=== PATIENT | male | born 1935 | race Caucasian/White ===

== ENCOUNTER 2018-07-17 05:03 | Inpatient (IN) | payer MEDICAID ==
[2018-07-17] MEDS ORDERED: Nitroglycerin 50mg in D5W 50 MG/250 ML BOTTLE IV ONE (05:11)
[2018-07-17] MEDS ORDERED: Albuterol 0.083% Inhal Sol (2.5 mg/3 mL) UD IH STA (05:14)
[2018-07-17] MEDS ORDERED: Albuterol-Ipratrop 3 mg / 0.5 (3 ml) UD INH STA (05:15)
[2018-07-17 05:16] VITALS: BMI 23.5
--- NOTE | 2018-07-17 05:19 | C.PDOC ---
History Of Present Illness Patient ANAT from home for evaluation of SOB since waking up. Grandson states he has chronic SOB, most often at night. Tonight he woke up around midnight with SOB, sat in chair for a few hours but then around 3am he tried to go back to bed and became more SOB again. Patient was placed on CPAP and given IV Lasix 40mg in the field by EMS. Patient has PMHx of CHF and "valve problem". History is limited due to clinical condition. Time Seen by Provider: 07/17/18 05:09 Chief Complaint (Nursing): Shortness Of Breath History Per: Patient History/Exam Limitations: clinical condition Current Respiratory Medications: See Home Med List Past Medical History Reviewed: Historical Data, Nursing Documentation, Vital Signs - Medical History PMH: CHF Family History: States: No Known Family Hx Review Of Systems Review Of Systems: ROS cannot be obtained secondary to pt's inabilty to answer questions. Physical Exam - Physical Exam Appears: In Acute Distress (in moderate respiratory distress) Skin: Normal Color, Warm, Dry Head: Normacephalic Oral Mucosa: Moist Cardiovascular: Rhythm Regular Respiratory: Accessory Muscle Use (moderate), Rales (B/L bases), No Rhonchi, Wheezing (mild expiratory wheezing ) Gastrointestinal/Abdominal: Normal Exam, Bowel Sounds, Soft, No Tenderness Extremity: Normal ROM, Pedal Edema (+1 pitting edema B/L LEs) Pulses: Left Dorsalis Pedis: Normal, Right Dorsalis Pedis: Normal Neurological/Psych: Oriented x3 ED Course And Treatment - Laboratory Results Result Diagrams: 07/21/18 07:58 07/21/18 07:58 ECG: Interpreted By Me, Viewed By Me (sinus rhythm 80 bpm, PACSs, left axis deviation, LBBB, T wave inversions I, aVL, V5-V6, no acute ST changes) ECG Interpretation: Abnormal O2 Sat by Pulse Oximetry: 94 (RA) Pulse Ox Interpretation: Normal - Radiology CXR: Interpreted by Me, Viewed By Me (pulmonary vascular congestion, no infilt rates, (+) pleural effusions) Progress Note: Patient placed on Bipap emergently. Blood work, EKG, CXR ordered and reviewed. Tridil drip started. 6:05am- Spoke with larriman helper Dr. Bourgeois, she will come eval patient for possible ICU admission. 6:32am- Oil Treater recommends telemetry admission. Reevaluation Time: 06:15 Reassessment Condition: Improved (Patient improved, sleeping but easily arousable and with less accessory muscle use. BP 90/40- Tridil drip stopped.) - Physician Consult Information Physician Contacted: Nemesio Cardona Outcome Of Conversation: Discussed patient with hospitalist (covers for Dr. Radha Duran + patient is self pay), he agrees with admission for dyspnea, chf exacerbation/fluid overload. Critical Care Time - Critical Care Note Total Time (in mins): 40 Documented critical care: time excludes all time spent performing seperately billable procedures. Disposition - Disposition Disposition: HOSPITALIZED Disposition Time: 06:27 Condition: FAIR - Clinical Impression Clinical Impression: Acute exacerbation of CHF (congestive heart failure), Dyspnea Decision To Admit - Pt Status Changed To: Hospital Disposition Of: Inpatient - Admit Certification Admit to Inpatient:: After my assessment, the patient will require hospitalization for at least two midnights. This is because of the severity of symptoms shown, intensity of services needed, and/or the medical risk in this pa tient being treated as an outpatient. - InPatient: Physician Admission Certification: I certify that this patient requires 2 or more midnights of care for the following reason:: see notes - . Bed Request Type: Telemetry Admitting Physician: Nemesio Cardona Patient Diagnosis: Acute exacerbation of CHF (congestive heart failure), Dyspnea
[2018-07-17 05:26] LABS: BASO % 0.5 % (0.0-2.0); EOS # 0.1 K/uL (0.0-0.7); EOS % 1.1 % (0.0-4.0); HEMOGLOBIN 11.4 g/dL (12.0-18.0); LYMPH # 1.6 K/uL (1.0-4.3); LYMPH % 17.9 % (20.0-40.0); MEAN CELL VOLUME 96.1 fL (80.0-94.0); MEAN CORPUSCULAR HGB CONC 33.2 g/dL (33.0-37.0); MEAN PLATELET VOLUME 7.4 fL (7.2-11.7); MONO # 0.6 K/uL (0.0-0.8); MONO % 6.4 % (0.0-10.0); NEUT # 6.7 K/uL (1.8-7.0); NEUT % 74.1 % (50.0-75.0); RBC 3.56 Mil/uL (4.40-5.90); RED CELL DISTRIBUTION WIDTH 15.1 % (11.5-14.5)
[2018-07-17 05:33] LABS: INR 1.2; PROTHROMBIN TIME 12.7 SECONDS (9.7-12.2)
[2018-07-17 05:37] LABS: ALB/GLOB RATIO 1.5 (1.0-2.1); ALBUMIN 4.5 g/dL (3.5-5.0); ALT/SGPT 40 U/L (21-72); AST/SGOT 74 U/L (17-59); BLOOD UREA NITROGEN 18 mg/dL (9-20); CALCIUM 9.5 mg/dl (8.6-10.4); GFR NON-AFRICAN AMERICAN > 60
[2018-07-17 05:39] LABS: ABG ALLEN TEST POS; ARTERIAL BLOOD GAS HCO3 22.4 mmol/L (21-28); ARTERIAL BLOOD GAS O2 SAT 99.7 % (95-98); ARTERIAL BLOOD GAS PCO2 36 mm/Hg (35-45); ARTERIAL BLOOD GAS PH 7.38 (7.35-7.45); ARTERIAL BLOOD GAS PO2 114 mm/Hg (80-100); ARTERIAL BLOOD GAS TCO2 22.4 mmol/L (22-28)
[2018-07-17 05:49] LABS: B-TYPE NATRIURETIC PEPTIDE 18400 pg/mL (0-900); CK-MB 3.73 ng/mL (0.0-3.38)
[2018-07-17] MEDS ORDERED: Albuterol-Ipratrop 3 mg / 0.5 (3 ml) UD ONE (06:21)
[2018-07-17] MEDS ORDERED: Albuterol 0.083% Inhal Sol (2.5 mg/3 mL) UD ONE (06:22)
--- NOTE | 2018-07-17 06:42 | CP.PCM.CON ---
History of Present Illness - History of Present Illness History of Present Illness: 82 y/o male with PMHx of CHF and "valve problem" BIBA from home for evaluation of SOB since waking up. Shane stated he has chronic SOB, most often at night. Tonight he woke up around midnight with SOB, sat in chair for a few hours but then around 3am he tried to go back to bed and became more SOB again. Patient was placed on CPAP and given IV Lasix 40mg in the field by EMS. In ER he was placed on BIPAP andstarted on IV nitrates with Clinical improvement.The nitrate drip has been discontinued.Patient denies chest pain and breathing is improved Unable to get further PMH.patient is on plavix,prednisone,singulair,Furesomi de,amlodipine and Fluticasone/Vilanterol at home Review of Systems - Review of Systems Systems not reviewed;Unavailable: Language Barrier - Constitutional Constitutional: absent: Fever - Cardiovascular Cardiovascular: absent: Chest Pain - Respiratory Respiratory: Dyspnea - Gastrointestinal Gastrointestinal: absent: Abdominal Pain Past Patient History - Past Social History Smoking Status: Unknown If Ever Smoked - CARDIAC Hx Congestive Heart Failure: Yes - PULMONARY Hx Chronic Obstructive Pulmonary Disease (COPD): Yes - NEUROLOGICAL Hx Neurological Disorder: No - HEENT Hx HEENT Problems: No - RENAL Hx Chronic Kidney Disease: No - ENDOCRINE/METABOLIC Hx Endocrine Disorders: No - HEMATOLOGICAL/ONCOLOGICAL Hx Blood Disorders: No - INTEGUMENTARY Hx Dermatological Problems: No - MUSCULOSKELETAL/RHEUMATOLOGICAL Hx Musculoskeletal Disorders: No - GASTROINTESTINAL Hx Gastrointestinal Disorders: No - GENITOURINARY/GYNECOLOGICAL Hx Genitourinary Disorders: No - PSYCHIATRIC Hx Psychophysiologic Disorder: No Hx Substance Use: No - SURGICAL HISTORY Hx Surgeries: No Meds Allergies/Adverse Reactions: Allergies Allergy/AdvReac Type Severity Reaction Status Date / Time No Known Allergies Allergy Verified 07/17/18 05:21 Physical Exam - Constitutional Appears: No Acute Distress - Head Exam Head Exam: ATRAUMATIC, NORMAL INSPECTION, NORMOCEPHALIC - Eye Exam Eye Exam: EOMI, Normal appearance, PERRL - ENT Exam ENT Exam: Mucous Membranes Moist - Neck Exam Neck exam: Positive for: Normal Inspection - Respiratory Exam Respiratory Exam: Decreased Breath Sounds Additional comments: decreased and entry and rales in bases - Cardiovascular Exam Cardiovascular Exam: REGULAR RHYTHM - GI/Abdominal Exam GI & Abdominal Exam: Normal Bowel Sounds, Soft. absent: Tenderness - Extremities Exam Extremities exam: Positive for: pedal edema, pedal pulses present. Negative for: calf tenderness - Neurological Exam Neurological exam: Alert, Oriented x3 - Skin Skin Exam: Normal Color, Warm Results - Vital Signs Recent Vital Signs: Last Vital Signs Temp Pulse 67 07/17/18 06:35 Resp 17 07/17/18 06:35 BP 100/48 L 07/17/18 06:35 Pulse Ox 98 07/17/18 06:35 - Labs Result Diagrams: 07/17/18 05:19 07/17/18 05:19 Labs: Laboratory Results - last 24 hr 07/17/18 07/17/18 07/17/18 05:19 05:19 05:19 WBC 9.0 RBC 3.56 L Hgb 11.4 L Hct 34.2 L MCV 96.1 H MCH 32.0 H MCHC 33.2 RDW 15.1 H Plt Count 226 MPV 7.4 Neut % (Auto) 74.1 Lymph % (Auto) 17.9 L Catron % (Auto) 6.4 Eos % (Auto) 1.1 Baso % (Auto) 0.5 Neut # (Auto) 6.7 Lymph # (Auto) 1.6 Catron # (Auto) 0.6 Eos # (Auto) 0.1 Baso # (Auto) 0.0 PT 12.7 H INR 1.2 APTT 29.0 Puncture Site pCO2 pO2 HCO3 ABG pH ABG Total CO2 ABG O2 Saturation ABG Base Excess Leonel Test ABG Potassium A-a O2 Difference Respiratory Index Glucose Lactate Vent Mode FiO2 Inspiratory BiPAP Expiratory BiPAP Sodium 129 L Potassium 4.9 Chloride 90 L Carbon Dioxide 23 Anion Gap 20 BUN 18 Creatinine 1.0 Est GFR ( Amer) > 60 Est GFR (Non-Af Amer) > 60 POC Glucose (mg/dL) Random Glucose 177 H Calcium 9.5 Total Bilirubin 0.9 AST 74 H ALT 40 Alkaline Phosphatase 60 Total Creatine Kinase 125 CK-MB (Mass) 3.73 H Troponin I 0.0290 NT-Pro-B Natriuret Pep 34516 H Total Protein 7.5 Albumin 4.5 Globulin 3.0 Albumin/Globulin Ratio 1.5 Arterial Blood Potassium 07/17/18 07/17/18 05:19 05:30 WBC RBC Hgb Hct MCV MCH MCHC RDW Plt Count MPV Neut % (Auto) Lymph % (Auto) Catron % (Auto) Eos % (Auto) Baso % (Auto) Neut # (Auto) Lymph # (Auto) Catron # (Auto) Eos # (Auto) Baso # (Auto) PT INR APTT Puncture Site Rr pCO2 36 pO2 114 H HCO3 22.4 ABG pH 7.38 ABG Total CO2 22.4 ABG O2 Saturation 99.7 H ABG Base Excess -3.3 L Leonel Test Pos ABG Potassium 4.2 A-a O2 Difference 269.0 Respiratory Index 2.4 Glucose 175 H Lactate 2.0 Vent Mode Bipap FiO2 60.0 Inspiratory BiPAP 14 Expiratory BiPAP 7 Sodium 125.0 L Potassium Chloride 93.0 L Carbon Dioxide Anion Gap BUN Creatinine Est GFR ( Amer) Est GFR (Non-Af Amer) POC Glucose (mg/dL) 192 H Random Glucose Calcium Total Bilirubin AST ALT Alkaline Phosphatase Total Creatine Kinase CK-MB (Mass) Troponin I NT-Pro-B Natriuret Pep Total Protein Albumin Globulin Albumin/Globulin Ratio Arterial Blood Potassium 4.2 - Imaging and Cardiology Chest x-ray Status: Image reviewed by me Assessment & Plan - Assessment and Plan (Free Text) Assessment: 1.Exacerbation of CHF/HTN continue BIPAp, diuretics,ACEI BP control 2.Anemia 3.Hyperglycemia r/o DM 4.Hyponatremia-f/u lytes patient clinically improved may be transferred to telemetry
--- NOTE | 2018-07-17 09:20 | CP.PCM.HP ---
<Gisela Kiran - Last Filed: 07/17/18 10:23> History of Present Illness - History of Present Illness History of Present Illness: H&P 82 year old male with past medical history of CHF, HTN, "valve problem" presented to hospital for SOB. Patient states that he has SOB on most days but for past 2 weeks, SOB has worsened. SOB present when pt tries to go to sleep and after walking to the bathroom. Last night, pt was unable to lay down to sleep due to the SOB and was brought to ED. Patient denies having any F/C, CP. He does complain of occasional palpitations and coughing[place] [id number]. Patient was placed on nitro drip and placed on BiPAP. Nitro drip discontinued and BiPAP continued. Currently, pt continues to c/o of SOB. Denies CP, abd pain, F/C, N/V/D/C. PMHx: stated above Sx: denies Social: denies smoking. Chews tobacco. Denies ETOH or drug use Cardio/PMD: Dr. Echeverria meds: see MAR Present on Admission - Present on Admission Any Indicators Present on Admission: No Review of Systems - Constitutional Constitutional: absent: Chills, Fever - EENT Eyes: absent: Blurred Vision, Discharge Nose/Mouth/Throat: absent: Nasal Congestion, Nasal Discharge, Sore Throat - Cardiovascular Cardiovascular: Dyspnea, Dyspnea on Exertion. absent: Chest Pain, Edema, Leg Edema, Lightheadedness, Pedal Edema - Respiratory Respiratory: Cough, Dyspnea. absent: Wheezing, Snoring - Gastrointestinal Gastrointestinal: absent: Abdominal Pain, Constipation, Diarrhea, Nausea, Vomiting - Genitourinary Genitourinary: absent: Dysuria, Pyuria, Urinary Frequency, Urinary Urgency - Musculoskeletal Musculoskeletal: absent: Back Pain, Numbness, Tingling - Integumentary Integumentary: absent: Acne, Lesions, Rash - Neurological Neurological: absent: Tingling, Weakness - Psychiatric Psychiatric: absent: Anxiety, Depression Past Patient History - Past Social History Smoking Status: Never Smoked Chewing Tobacco Use: Yes Cigar Use: No Alcohol: None Drugs: Denies Home Situation {Lives}: With Family - CARDIAC Hx Congestive Heart Failure: Yes - PULMONARY Hx Chronic Obstructive Pulmonary Disease (COPD): Yes - NEUROLOGICAL Hx Neurological Disorder: No - HEENT Hx HEENT Problems: No - RENAL Hx Chronic Kidney Disease: No - ENDOCRINE/METABOLIC Hx Endocrine Disorders: No - HEMATOLOGICAL/ONCOLOGICAL Hx Blood Disorders: No - INTEGUMENTARY Hx Dermatological Problems: No - MUSCULOSKELETAL/RHEUMATOLOGICAL Hx Musculoskeletal Disorders: No - GASTROINTESTINAL Hx Gastrointestinal Disorders: No - GENITOURINARY/GYNECOLOGICAL Hx Genitourinary Disorders: No - PSYCHIATRIC Hx Psychophysiologic Disorder: No Hx Substance Use: No - SURGICAL HISTORY Hx Surgeries: No Meds Allergies/Adverse Reactions: Allergies Allergy/AdvReac Type Severity Reaction Status Date / Time No Known Allergies Allergy Verified 07/17/18 05:21 Physical Exam - Constitutional Appears: Non-toxic, No Acute Distress - Head Exam Head Exam: ATRAUMATIC, NORMOCEPHALIC - ENT Exam ENT Exam: Mucous Membranes Moist - Respiratory Exam Respiratory Exam: Accessory Muscle Use, Rales (RLL), Rhonchi. absent: Respiratory Distress - Cardiovascular Exam Cardiovascular Exam: REGULAR RHYTHM, +S1, +S2, Systolic Murmur. absent: Gallop, Rubs - GI/Abdominal Exam GI & Abdominal Exam: Normal Bowel Sounds, Soft. absent: Distended, Firm, Guarding, Rigid, Tenderness - Extremities Exam Extremities exam: Negative for: pedal edema, tenderness - Neurological Exam Neurological exam: Alert, Oriented x3 - Psychiatric Exam Psychiatric exam: Normal Affect, Normal Mood - Skin Skin Exam: Dry, Intact, Normal Color, Warm Results - Vital Signs Recent Vital Signs: Last Vital Signs Temp 98.1 F 07/17/18 08:03 Pulse 71 07/17/18 08:03 Resp 14 07/17/18 08:03 BP 104/56 L 07/17/18 08:03 Pulse Ox 98 07/17/18 08:03 - Labs Result Diagrams: 07/17/18 05:19 07/17/18 05:19 Labs: Laboratory Results - last 24 hr 07/17/18 07/17/18 07/17/18 05:19 05:19 05:19 WBC 9.0 RBC 3.56 L Hgb 11.4 L Hct 34.2 L MCV 96.1 H MCH 32.0 H MCHC 33.2 RDW 15.1 H Plt Count 226 MPV 7.4 Neut % (Auto) 74.1 Lymph % (Auto) 17.9 L Payne % (Auto) 6.4 Eos % (Auto) 1.1 Baso % (Auto) 0.5 Neut # (Auto) 6.7 Lymph # (Auto) 1.6 Payne # (Auto) 0.6 Eos # (Auto) 0.1 Baso # (Auto) 0.0 PT 12.7 H INR 1.2 APTT 29.0 Puncture Site pCO2 pO2 HCO3 ABG pH ABG Total CO2 ABG O2 Saturation ABG Base Excess Leonel Test ABG Potassium A-a O2 Difference Respiratory Index Glucose Lactate Vent Mode FiO2 Inspiratory BiPAP Expiratory BiPAP Sodium 129 L Potassium 4.9 Chloride 90 L Carbon Dioxide 23 Anion Gap 20 BUN 18 Creatinine 1.0 Est GFR ( Amer) > 60 Est GFR (Non-Af Amer) > 60 POC Glucose (mg/dL) Random Glucose 177 H Calcium 9.5 Total Bilirubin 0.9 AST 74 H ALT 40 Alkaline Phosphatase 60 Total Creatine Kinase 125 CK-MB (Mass) 3.73 H Troponin I 0.0290 NT-Pro-B Natriuret Pep 66297 H Total Protein 7.5 Albumin 4.5 Globulin 3.0 Albumin/Globulin Ratio 1.5 Arterial Blood Potassium 07/17/18 07/17/18 05:19 05:30 WBC RBC Hgb Hct MCV MCH MCHC RDW Plt Count MPV Neut % (Auto) Lymph % (Auto) Payne % (Auto) Eos % (Auto) Baso % (Auto) Neut # (Auto) Lymph # (Auto) Payne # (Auto) Eos # (Auto) Baso # (Auto) PT INR APTT Puncture Site Rr pCO2 36 pO2 114 H HCO3 22.4 ABG pH 7.38 ABG Total CO2 22.4 ABG O2 Saturation 99.7 H ABG Base Excess -3.3 L Leonel Test Pos ABG Potassium 4.2 A-a O2 Difference 269.0 Respiratory Index 2.4 Glucose 175 H Lactate 2.0 Vent Mode Bipap FiO2 60.0 Inspiratory BiPAP 14 Expiratory BiPAP 7 Sodium 125.0 L Potassium Chloride 93.0 L Carbon Dioxide Anion Gap BUN Creatinine Est GFR ( Amer) Est GFR (Non-Af Amer) POC Glucose (mg/dL) 192 H Random Glucose Calcium Total Bilirubin AST ALT Alkaline Phosphatase Total Creatine Kinase CK-MB (Mass) Troponin I NT-Pro-B Natriuret Pep Total Protein Albumin Globulin Albumin/Globulin Ratio Arterial Blood Potassium 4.2 Assessment & Plan - Assessment and Plan (Free Text) Assessment: 82 year old male with past medical history of HTN, CHF is admitted for respiratory distress 2/2 CHF exacerbation vs. COPD exacerbation. Respiratory distress 2/2 CHF exacerbation vs. COPD exacerbation - [place] admission 89275. Initial trop is negative. - CXR showed B/L effusions wit R>L. Official report pending - Pt received Solumedrol 125 mg IV in ED - Will start pt on lasixs 40 IV qd - echo ordered - Will check serial trop and EKG - Cardio, Dr. Echeverria referral requested - BiPAP prn - Solumedrol 40 IV qd - duoneb prn - blood and sputum cultures ordered - Zithromax and rocephin qd COPD - Duoneb prn - Solumedrol 40 UV qd - BiPAP CHF - Will check echo - serial trops and ekg, Hgb A1c and lipid panel ordered HTN - lasixs 40 IV qd - Will hold home bp med until medications are confirmed Prophylaxis - Protonix - SCDs, lovenox Case discussed with attending, Dr. Roberto - Date & Time Date: 07/17/18 Time: 10:27 <Alma Roberto - Last Filed: 07/19/18 21:38> Results - Vital Signs Recent Vital Signs: Last Vital Signs Temp 97.7 F 07/19/18 15:44 Pulse 60 07/19/18 17:04 Resp 20 07/19/18 15:44 BP 100/51 L 07/19/18 15:44 Pulse Ox 96 07/19/18 15:44 - Labs Result Diagrams: 07/19/18 08:09 07/19/18 08:09 Labs: Laboratory Results - last 24 hr 07/19/18 07/19/18 07/19/18 06:18 08:09 08:09 WBC 7.3 RBC 2.89 L Hgb 9.3 L Hct 27.5 L MCV 95.1 H MCH 32.3 H MCHC 34.0 RDW 14.9 H Plt Count 193 MPV 7.7 Neut % (Auto) 66.8 Lymph % (Auto) 18.8 L Payne % (Auto) 13.7 H Eos % (Auto) 0.3 Baso % (Auto) 0.4 Neut # (Auto) 4.9 Lymph # (Auto) 1.4 Payne # (Auto) 1.0 H Eos # (Auto) 0.0 Baso # (Auto) 0.0 Sodium 131 L Potassium 4.5 Chloride 94 L Carbon Dioxide 27 Anion Gap 14 BUN 29 H Creatinine 1.1 Est GFR ( Amer) > 60 Est GFR (Non-Af Amer) > 60 POC Glucose (mg/dL) 118 H Random Glucose 94 Calcium 9.3 Phosphorus 4.2 Magnesium 2.1 Total Bilirubin 0.6 AST 40 ALT 28 Alkaline Phosphatase 40 Total Protein 6.6 Albumin 3.8 Globulin 2.8 Albumin/Globulin Ratio 1.4 07/19/18 07/19/18 07/19/18 11:26 16:24 21:14 WBC RBC Hgb Hct MCV MCH MCHC RDW Plt Count MPV Neut % (Auto) Lymph % (Auto) Payne % (Auto) Eos % (Auto) Baso % (Auto) Neut # (Auto) Lymph # (Auto) Payne # (Auto) Eos # (Auto) Baso # (Auto) Sodium Potassium Chloride Carbon Dioxide Anion Gap BUN Creatinine Est GFR ( Amer) Est GFR (Non-Af Amer) POC Glucose (mg/dL) 114 H 150 H 172 H Random Glucose Calcium Phosphorus Magnesium Total Bilirubin AST ALT Alkaline Phosphatase Total Protein Albumin Globulin Albumin/Globulin Ratio Attending/Attestation - Attestation I have personally seen and examined this patient.: Yes I have fully participated in the care of the patient.: Yes I have reviewed all pertinent clinical information: Yes Notes (Text): seen and examined by me. Patient was in BIPAP. His breathing is improving SOB is likely due to acute exacerbation of CHF Vs COPD
[2018-07-17] MEDS ORDERED: Pantoprazole 40 mg EC Tab PO SCH (10:00)
[2018-07-17] MEDS ORDERED: MethylPREDNISolone 40 mg Vial IVP SCH (10:00)
[2018-07-17] MEDS ORDERED: Azithromycin 500 MG in Sodium Chloride 0.9% 250 ML IVPB SCH (10:30)
[2018-07-17] MEDS ORDERED: cefTRIAXone IV 1 gm in Dextros 50 ML IVPB SCH (10:30)
[2018-07-17] MEDS: MethylPREDNISolone 40 mg Vial IVP SCH (10:56)
[2018-07-17] MEDS: Enoxaparin 40 mg Syringe SC SCH (10:56)
[2018-07-17 14:34] LABS: CK-MB 3.37 ng/mL (0.0-3.38); TROPONIN I 0.05 ng/mL (0.00-0.120)
--- NOTE | 2018-07-17 15:44 | RAD ---
Date of service: 07/17/2018 PROCEDURE: CHEST RADIOGRAPH, 1 VIEW HISTORY: SOB COMPARISON: None available. FINDINGS: LUNGS: No infiltrate. Mucosa right base is partially obscured by pleural effusion, cannot exclude right basilar infiltrate. PLEURA: Small bilateral pleural effusion, right greater than left. No pneumothorax. CARDIOVASCULAR: No aortic atherosclerotic calcification present. Normal heart size. Extensive congestive change. OSSEOUS STRUCTURES: No significant abnormalities. VISUALIZED UPPER ABDOMEN: Normal. OTHER FINDINGS: None. IMPRESSION: Congestive change. Small bilateral pleural effusion.
--- NOTE | 2018-07-17 16:34 | CP.PCM.CON ---
History of Present Illness - History of Present Illness History of Present Illness: CC: SHortness of breath HPI: 82 year old man with 1-2 days of severe shortness of breath. Worse with exertion. Improved with bipap and lasix. Appears to be occurring in the setting of CHF. Review of Systems - Review of Systems All systems: reviewed and no additional remarkable complaints except Past Patient History - Past Medical History & Family History Past Medical History?: Yes - Past Social History Smoking Status: Never Smoked - CARDIAC Hx Congestive Heart Failure: Yes Hx Hypercholesterolemia: Yes Hx Hypertension: Yes Other/Comment: "leaky valve" as per family - PULMONARY Hx Chronic Obstructive Pulmonary Disease (COPD): No - NEUROLOGICAL Hx Neurological Disorder: No - HEENT Hx HEENT Problems: No - RENAL Hx Chronic Kidney Disease: No - ENDOCRINE/METABOLIC Hx Diabetes Mellitus Type 2: Yes - HEMATOLOGICAL/ONCOLOGICAL Hx Blood Disorders: No - INTEGUMENTARY Hx Dermatological Problems: No - MUSCULOSKELETAL/RHEUMATOLOGICAL Hx Arthritis: Yes Hx Falls: No - GASTROINTESTINAL Hx Gastrointestinal Disorders: No - GENITOURINARY/GYNECOLOGICAL Hx Genitourinary Disorders: No - PSYCHIATRIC Hx Psychophysiologic Disorder: No Hx Substance Use: No - SURGICAL HISTORY Hx Surgeries: Yes Other/Comment: prostatectomy - ANESTHESIA Hx Anesthesia: Yes Hx Anesthesia Reactions: No Meds Allergies/Adverse Reactions: Allergies Allergy/AdvReac Type Severity Reaction Status Date / Time No Known Allergies Allergy Verified 07/17/18 05:21 - Medications Medications: Current Medications Albuterol/Ipratropium (Duoneb 3 Mg/0.5 Mg (3 Ml) Ud) 3 ml INH RQ6 [facility] Amlodipine Besylate (Norvasc) 5 mg PO DAILY [facility] Clopidogrel Bisulfate (Plavix) 75 mg PO DAILY [facility] Enoxaparin Sodium (Lovenox) 40 mg SC DAILY [facility] Last Admin: 07/17/18 10:56 Dose: 40 mg Famotidine (Pepcid) 20 mg PO BID [facility] Last Admin: 07/17/18 10:56 Dose: 20 mg Furosemide (Lasix) 40 mg IVP DAILY [facility] Last Admin: 07/17/18 10:56 Dose: 40 mg Azithromycin 500 mg/ Sodium (Chloride) 250 mls @ 250 mls/hr IVPB Q24H [facility]; Protocol Ceftriaxone Sodium (Rocephin Iv 1 Gm Duplex) 50 mls @ 100 mls/hr IVPB Q24H [facility]; Protocol Insulin Human Regular (Novolin R) 0 unit SC [facility]; Protocol Methylprednisolone (Solu-Medrol) 40 mg IVP DAILY [facility] Last Admin: 07/17/18 10:56 Dose: 40 mg Metoprolol Tartrate (Lopressor) 50 mg PO BID [facility] Montelukast Sodium (Singulair) 10 mg PO HS [facility] Montelukast Sodium (Singulair) 10 mg PO HS [facility] Pneumococcal Polyvalent Vaccine (Pneumovax 23 Vaccine) 0.5 ml IM .ONCE ONE Stop: 07/20/18 13:29 Rosuvastatin Calcium (Crestor) 5 mg PO HS [facility] Physical Exam - Constitutional Appears: Well, In Acute Distress - Head Exam Head Exam: ATRAUMATIC, NORMAL INSPECTION - Eye Exam Eye Exam: PERRL. absent: Scleral icterus - ENT Exam ENT Exam: Mucous Membranes Dry, Normal External Ear Exam - Neck Exam Neck exam: Positive for: Full Rom. Negative for: Thyromegaly - Respiratory Exam Respiratory Exam: Decreased Breath Sounds, Rhonchi, Wheezes, NORMAL BREATHING PATTERN - Cardiovascular Exam Cardiovascular Exam: Tachycardia, REGULAR RHYTHM, JVD, RRR, +S1, +S2, Systolic M urmur - GI/Abdominal Exam GI & Abdominal Exam: Normal Bowel Sounds. absent: Organomegaly - Extremities Exam Extremities exam: Negative for: calf tenderness, pedal edema - Neurological Exam Neurological exam: CN II-XII Intact, Oriented x3 - Psychiatric Exam Psychiatric exam: Normal Affect, Normal Mood Results - Vital Signs Recent Vital Signs: Last Vital Signs Temp 97.9 F 07/17/18 15:03 Pulse 74 07/17/18 15:03 Resp 20 07/17/18 15:03 BP 95/55 L 07/17/18 15:03 Pulse Ox 96 07/17/18 15:03 - Labs Result Diagrams: 07/17/18 05:19 07/17/18 05:19 Labs: Laboratory Results - last 24 hr 07/17/18 07/17/18 07/17/18 05:19 05:19 05:19 WBC 9.0 RBC 3.56 L Hgb 11.4 L Hct 34.2 L MCV 96.1 H MCH 32.0 H MCHC 33.2 RDW 15.1 H Plt Count 226 MPV 7.4 Neut % (Auto) 74.1 Lymph % (Auto) 17.9 L Stone % (Auto) 6.4 Eos % (Auto) 1.1 Baso % (Auto) 0.5 Neut # (Auto) 6.7 Lymph # (Auto) 1.6 Stone # (Auto) 0.6 Eos # (Auto) 0.1 Baso # (Auto) 0.0 PT 12.7 H INR 1.2 APTT 29.0 Puncture Site pCO2 pO2 HCO3 ABG pH ABG Total CO2 ABG O2 Saturation ABG Base Excess Leonel Test ABG Potassium A-a O2 Difference Respiratory Index Glucose Lactate Vent Mode FiO2 Inspiratory BiPAP Expiratory BiPAP Sodium 129 L Potassium 4.9 Chloride 90 L Carbon Dioxide 23 Anion Gap 20 BUN 18 Creatinine 1.0 Est GFR ( Amer) > 60 Est GFR (Non-Af Amer) > 60 POC Glucose (mg/dL) Random Glucose 177 H Hemoglobin A1c Calcium 9.5 Total Bilirubin 0.9 AST 74 H ALT 40 Alkaline Phosphatase 60 Total Creatine Kinase 125 CK-MB (Mass) 3.73 H Troponin I 0.0290 NT-Pro-B Natriuret Pep 32700 H Total Protein 7.5 Albumin 4.5 Globulin 3.0 Albumin/Globulin Ratio 1.5 Triglycerides Cholesterol LDL Cholesterol Direct HDL Cholesterol Thyroxine (T4) TSH 3rd Generation Arterial Blood Potassium 07/17/18 07/17/18 07/17/18 05:19 05:30 09:00 WBC RBC Hgb Hct MCV MCH MCHC RDW Plt Count MPV Neut % (Auto) Lymph % (Auto) Stone % (Auto) Eos % (Auto) Baso % (Auto) Neut # (Auto) Lymph # (Auto) Stone # (Auto) Eos # (Auto) Baso # (Auto) PT INR APTT Puncture Site Rr pCO2 36 pO2 114 H HCO3 22.4 ABG pH 7.38 ABG Total CO2 22.4 ABG O2 Saturation 99.7 H ABG Base Excess -3.3 L Leonel Test Pos ABG Potassium 4.2 A-a O2 Difference 269.0 Respiratory Index 2.4 Glucose 175 H Lactate 2.0 Vent Mode Bipap FiO2 60.0 Inspiratory BiPAP 14 Expiratory BiPAP 7 Sodium 125.0 L Potassium Chloride 93.0 L Carbon Dioxide Anion Gap BUN Creatinine Est GFR ( Amer) Est GFR (Non-Af Amer) POC Glucose (mg/dL) 192 H Random Glucose Hemoglobin A1c 5.6 Calcium Total Bilirubin AST ALT Alkaline Phosphatase Total Creatine Kinase CK-MB (Mass) Troponin I NT-Pro-B Natriuret Pep Total Protein Albumin Globulin Albumin/Globulin Ratio Triglycerides Cholesterol LDL Cholesterol Direct HDL Cholesterol Thyroxine (T4) TSH 3rd Generation Arterial Blood Potassium 4.2 07/17/18 07/17/18 07/17/18 11:24 11:46 13:47 WBC RBC Hgb Hct MCV MCH MCHC RDW Plt Count MPV Neut % (Auto) Lymph % (Auto) Stone % (Auto) Eos % (Auto) Baso % (Auto) Neut # (Auto) Lymph # (Auto) Stone # (Auto) Eos # (Auto) Baso # (Auto) PT INR APTT Puncture Site pCO2 pO2 HCO3 ABG pH ABG Total CO2 ABG O2 Saturation ABG Base Excess Leonel Test ABG Potassium A-a O2 Difference Respiratory Index Glucose Lactate Vent Mode FiO2 Inspiratory BiPAP Expiratory BiPAP Sodium Potassium Chloride Carbon Dioxide Anion Gap BUN Creatinine Est GFR ( Amer) Est GFR (Non-Af Amer) POC Glucose (mg/dL) 176 H Random Glucose Hemoglobin A1c Calcium Total Bilirubin AST ALT Alkaline Phosphatase Total Creatine Kinase 98 CK-MB (Mass) 3.37 Troponin I 0.0500 NT-Pro-B Natriuret Pep Total Protein Albumin Globulin Albumin/Globulin Ratio Triglycerides 34 Cholesterol 134 LDL Cholesterol Direct 42 HDL Cholesterol 96 H Thyroxine (T4) 8.72 TSH 3rd Generation 1.42 Arterial Blood Potassium 07/17/18 16:24 WBC RBC Hgb Hct MCV MCH MCHC RDW Plt Count MPV Neut % (Auto) Lymph % (Auto) Stone % (Auto) Eos % (Auto) Baso % (Auto) Neut # (Auto) Lymph # (Auto) Stone # (Auto) Eos # (Auto) Baso # (Auto) PT INR APTT Puncture Site pCO2 pO2 HCO3 ABG pH ABG Total CO2 ABG O2 Saturation ABG Base Excess Leonel Test ABG Potassium A-a O2 Difference Respiratory Index Glucose Lactate Vent Mode FiO2 Inspiratory BiPAP Expiratory BiPAP Sodium Potassium Chloride Carbon Dioxide Anion Gap BUN Creatinine Est GFR ( Amer) Est GFR (Non-Af Amer) POC Glucose (mg/dL) 163 H Random Glucose Hemoglobin A1c Calcium Total Bilirubin AST ALT Alkaline Phosphatase Total Creatine Kinase CK-MB (Mass) Troponin I NT-Pro-B Natriuret Pep Total Protein Albumin Globulin Albumin/Globulin Ratio Triglycerides Cholesterol LDL Cholesterol Direct HDL Cholesterol Thyroxine (T4) TSH 3rd Generation Arterial Blood Potassium - EKG Data EKG Interpreted by: Myself EKG shows normal: Sinus rhythm Rate: Tachycardia - Imaging and Cardiology Chest x-ray Status: Image reviewed by me Additional comment: Right sided pleural effusion > Left sided effusions, No infiltrates Assessment & Plan - Assessment and Plan (Free Text) Assessment: 82 year old man with acute systolic CHF improved with IV lasix I ordered. Cont inue lasix. Bipap, obtain 2D echo to measure Ejection fraction and measure filling pressures ASHD DAPT and statin HTN is chronic and stable on current regimine Diabetes is chronic and stable on insulin Hyperlipidemia is chronic and stable on crestor LDL at 40 is at goal - Date & Time Date: 07/17/18 Time: 11:30
[2018-07-17] MEDS: (Novolin R) Insulin Human Regular 100 units/ml vial SC SCH ×2 (17:34→21:19)
[2018-07-17] MEDS: Albuterol-Ipratrop 3 mg / 0.5 (3 ml) UD INH SCH (19:21)
[2018-07-17 21:23] LABS: CK-MB 3.03 ng/mL (0.0-3.38); TROPONIN I 0.062 ng/mL (0.00-0.120)
[2018-07-18] MEDS: Albuterol-Ipratrop 3 mg / 0.5 (3 ml) UD INH SCH ×4 (02:44→19:11)
--- NOTE | 2018-07-18 06:57 | CP.PCM.PN ---
<Sedrick Clifton - Last Filed: 07/18/18 13:23> Subjective - Date & Time of Evaluation Date of Evaluation: 07/18/18 Time of Evaluation: 07:10 - Subjective Subjective: Medicine progress note for Dr. Morgan. Patient seen and examined at bedside. Pt reports improvement in breathing, on bipap. Denies headaches, vision changes, chest pain, abdominal pain, nausea, vomitting, fevers, chills. Pt reports occasional difficult passin bowel movement, however, is able to pass one daily. Objective - Vital Signs/Intake and Output Vital Signs (last 24 hours): Temp Pulse Resp BP Pulse Ox 98 F 83 24 100/50 L 100 07/18/18 01:00 07/18/18 05:03 07/18/18 01:00 07/18/18 01:00 07/18/18 01:00 Intake and Output: 07/17/18 07/18/18 18:59 06:59 Intake Total 500 300 Output Total 450 260 Balance 50 40 - Medications Medications: Current Medications Albuterol/Ipratropium (Duoneb 3 Mg/0.5 Mg (3 Ml) Ud) 3 ml INH RQ6 [facility] Last Admin: 07/18/18 02:44 Dose: 3 ml Clopidogrel Bisulfate (Plavix) 75 mg PO DAILY [facility] Last Admin: 07/17/18 17:36 Dose: Not Given Enoxaparin Sodium (Lovenox) 40 mg SC DAILY [facility] Last Admin: 07/17/18 10:56 Dose: 40 mg Famotidine (Pepcid) 20 mg PO BID [facility] Last Admin: 07/17/18 17:36 Dose: 20 mg Furosemide (Lasix) 40 mg IVP DAILY [facility] Last Admin: 07/17/18 10:56 Dose: 40 mg Azithromycin 500 mg/ Sodium (Chloride) 250 mls @ 250 mls/hr IVPB Q24H [facility]; Protocol Ceftriaxone Sodium (Rocephin Iv 1 Gm Duplex) 50 mls @ 100 mls/hr IVPB Q24H [facility]; Protocol Insulin Human Regular (Novolin R) 0 unit SC [facility]; Protocol Last Admin: 07/17/18 21:19 Dose: Not Given Methylprednisolone (Solu-Medrol) 40 mg IVP DAILY [facility] Last Admin: 07/17/18 10:56 Dose: 40 mg Montelukast Sodium (Singulair) 10 mg PO HS [facility] Last Admin: 07/17/18 21:19 Dose: 10 mg Pneumococcal Polyvalent Vaccine (Pneumovax 23 Vaccine) 0.5 ml IM .ONCE ONE Stop: 07/20/18 13:29 Pneumococcal Polyvalent Vaccine (Pneumovax 23 Vaccine) 0.5 ml IM .ONCE ONE Stop: 07/19/18 10:01 Rosuvastatin Calcium (Crestor) 5 mg PO [facility] Last Admin: 07/17/18 21:19 Dose: 5 mg - Labs Labs: 07/17/18 05:19 07/17/18 05:19 PT 12.7 SECONDS (9.7-12.2) H 07/17/18 05:19 INR 1.2 07/17/18 05:19 APTT 29.0 SECONDS (21-34) 07/17/18 05:19 - Constitutional Appears: Non-toxic, No Acute Distress - Head Exam Head Exam: NORMAL INSPECTION - Eye Exam Eye Exam: EOMI, Normal appearance - ENT Exam ENT Exam: Mucous Membranes Moist - Respiratory Exam Respiratory Exam: Decreased Breath Sounds, Rales Additional comments: rales b/l lower lung chen - Cardiovascular Exam Cardiovascular Exam: +S1, +S2, Murmur. absent: Bradycardia, Irregular Rhythm Additional comments: holosystolic around right 2nd intercoastal, consistent with aortic stenosis - GI/Abdominal Exam GI & Abdominal Exam: Soft, Normal Bowel Sounds. absent: Firm, Guarding, Rigid - Extremities Exam Extremities Exam: Full ROM, Normal Inspection. absent: Calf Tenderness, Pedal Edema - Back Exam Back Exam: absent: CVA tenderness (L), CVA tenderness (R) - Neurological Exam Neurological Exam: Alert, Awake, Oriented x3 - Psychiatric Exam Psychiatric exam: Normal Affect, Normal Mood - Skin Skin Exam: Dry, Intact, Normal Color, Warm Assessment and Plan - Assessment and Plan (Free Text) Assessment: 82 year old male with past medical history of HTN, CHF is admitted for respiratory distress 2/2 CHF exacerbation vs. COPD exacerbation. Plan: Respiratory distress CHF exacerbation w/ reduced EF Aortic Stenosis - Severe Aortic regurgitation- Moderate - ProBNP 98853. troponins x3 negativ - CXR showed B/L effusions wit R>L. - Repeat CXR 07/18 moderate to severe venous congestion, b/l pleural effusion, opacity at lung base - trops X 3 negative, PVC on ekg - ECHO: EF of 40-45%, severe aortic stenosis, moderate to severe aortic regurgitation, severe pulmonary HTN, mild dilated ascending aorta - lasix reduced to 20 IVP daily due to BP in 100s - BiPAP prn - F/u blood and sputum cultures - f/u Chest CT - c/w abx zithromax & ceftraixone for consolidation on cxr - F/u cardio, Dr. Echeverria recs Cardio, Hyponatremia - Na in upper 120s - likely due to fluid overload - will fluid restrict - continue to monitor History of HTN History of ASHD - unsure of medication pt is taking at home - BP in 100s - due to vascular congestion, lasix 40 IVP daily initially, now reducing to 20 IVP daily - per cardio, DAPT, aspirin 81 mg, plavix 75 mg, rosuvastatin 5 mg daily History of DM - pt reports taking a medication in [place] for diabetes; unsure of name - B.S. 120s to 180s - hgA1c 5.6, on ISS in hospital - start lisinopril 2.5mg daily for renal protection Prophylaxis - Protonix - SCDs, lovenox <Humberto Morgan H - Last Filed: 07/18/18 17:28> Objective - Vital Signs/Intake and Output Vital Signs (last 24 hours): Temp Pulse Resp BP Pulse Ox 97.9 F 84 22 106/62 100 07/18/18 08:00 07/18/18 16:00 07/18/18 08:00 07/18/18 11:48 07/18/18 08:00 Intake and Output: 07/18/18 07/18/18 06:59 18:59 Intake Total 300 850 Output Total 260 Balance 40 850 - Medications Medications: Current Medications Albuterol/Ipratropium (Duoneb 3 Mg/0.5 Mg (3 Ml) Ud) 3 ml INH RQ6 [facility] Last Admin: 07/18/18 14:03 Dose: Not Given Aspirin (Ecotrin) 81 mg PO DAILY [facility] Last Admin: 07/18/18 11:48 Dose: 81 mg Clopidogrel Bisulfate (Plavix) 75 mg PO DAILY [facility] Last Admin: 07/18/18 10:37 Dose: 75 mg Docusate Sodium (Colace) 100 mg PO BID [facility] Enoxaparin Sodium (Lovenox) 40 mg SC DAILY [facility] Last Admin: 07/18/18 10:38 Dose: 40 mg Famotidine (Pepcid) 20 mg PO BID [facility] Last Admin: 07/18/18 10:38 Dose: 20 mg Furosemide (Lasix) 20 mg PO DAILY [facility] Last Admin: 07/18/18 11:48 Dose: 20 mg Azithromycin 500 mg/ Sodium (Chloride) 250 mls @ 250 mls/hr IVPB Q24H [facility]; Protocol Last Admin: 07/18/18 14:20 Dose: 250 mls/hr Ceftriaxone Sodium (Rocephin Iv 1 Gm Duplex) 50 mls @ 100 mls/hr IVPB Q24H [facility]; Protocol Last Admin: 07/18/18 11:49 Dose: 100 mls/hr Insulin Human Regular (Novolin R) 0 unit SC [facility]; Protocol Last Admin: 07/18/18 12:23 Dose: 2 unit Lisinopril (Zestril) 2.5 mg PO DAILY [facility] Methylprednisolone (Solu-Medrol) 40 mg IVP DAILY [facility] Last Admin: 07/18/18 10:38 Dose: 40 mg Montelukast Sodium (Singulair) 10 mg PO [facility] Last Admin: 07/17/18 21:19 Dose: 10 mg Pneumococcal Polyvalent Vaccine (Pneumovax 23 Vaccine) 0.5 ml IM .ONCE ONE Stop: 07/19/18 10:01 Rosuvastatin Calcium (Crestor) 5 mg PO [facility] Last Admin: 07/17/18 21:19 Dose: 5 mg - Labs Labs: 07/18/18 07:36 07/18/18 07:36 PT 12.7 SECONDS (9.7-12.2) H 07/17/18 05:19 INR 1.2 07/17/18 05:19 APTT 28.0 SECONDS (21-34) 07/18/18 07:36 Attending/Attestation - Attestation I have personally seen and examined this patient.: Yes I have fully participated in the care of the patient.: Yes I have reviewed all pertinent clinical information, including history, physical exam and plan: Yes Notes (Text): 07/18/18 17:23 Medical attending: Patient was seen and examined by me with the medical residents The patient was family members at bedside, during this morning we were pending results of the echo cardiogram since there was a reported history of aortic stenosis. He was getting lasix 40 IV daily, however the blood pressure was in the lower 100 systolic range. He reports urinating a lot with the lasix thus far so we decreased it to just 20 IV temporarily. We will repeat the CXRAY again tommorow, today's CXRAY shows pulmonary congestion and probably moderate pleural effusions Because of this we also ordered a CT without contrast toget a good look at the plueral effusions in case he will need a thoracentesis. Overnight he was on Bipap and he said that this seems to help him Later in the afternoon the echo returned and it did show there was severe aortic stenosis. We are pending on the CT at this time.
[2018-07-18 07:58] LABS: BASO % 0.1 % (0.0-2.0); LYMPH % 13.8 % (20.0-40.0); MEAN CORPUSCULAR HEMOGLOBIN 33.3 pg (27.0-31.0); MEAN CORPUSCULAR HGB CONC 35.5 g/dL (33.0-37.0); MONO # 0.9 K/uL (0.0-0.8); NEUT # 5.2 K/uL (1.8-7.0); NEUT % 73.1 % (50.0-75.0); RBC 2.72 Mil/uL (4.40-5.90); RED CELL DISTRIBUTION WIDTH 14.7 % (11.5-14.5); WHITE BLOOD COUNT 7.2 K/uL (4.8-10.8)
[2018-07-18 08:01] LABS: HEMOGLOBIN 9.1 g/dL (12.0-18.0); MEAN CELL VOLUME 93.7 fL (80.0-94.0)
[2018-07-18 08:09] LABS: ALB/GLOB RATIO 1.6 (1.0-2.1); ALBUMIN 3.9 g/dL (3.5-5.0); ALT/SGPT 24 U/L (21-72); AST/SGOT 28 U/L (17-59); BLOOD UREA NITROGEN 26 mg/dL (9-20); CALCIUM 8.9 mg/dl (8.6-10.4); GFR NON-AFRICAN AMERICAN 58
[2018-07-18] MEDS: (Novolin R) Insulin Human Regular 100 units/ml vial SC SCH ×4 (08:17→22:37)
--- NOTE | 2018-07-18 09:09 | RAD ---
Chest x-ray single frontal view History: Congestive heart failure. Comparison: 07/17/2018 Findings: Moderate to severe venous congestion. Moderate bilateral pleural effusions. Persistent patchy opacities at the lung bases. Enlarged ectatic aorta with atherosclerotic calcification at the aortic knob. Cardiomegaly. Biapical pleural thickening with upper lobe granulomatous changes. Degenerative changes in the spine and shoulders. Impression: Moderate to severe venous congestion. Moderate bilateral pleural effusions. Persistent patchy opacities at the lung bases. Enlarged ectatic aorta with atherosclerotic calcification at the aortic knob. Cardiomegaly. Biapical pleural thickening with upper lobe granulomatous changes.
[2018-07-18] MEDS: MethylPREDNISolone 40 mg Vial IVP SCH (10:38)
[2018-07-18] MEDS: Enoxaparin 40 mg Syringe SC SCH (10:38)
[2018-07-18] MEDS: cefTRIAXone IV 1 gm in Dextros 50 ML IVPB SCH (11:49)
--- NOTE | 2018-07-18 12:19 | CARD ---
APPROVED REPORT Date of service: 07/17/2018 EKG Measurement Heart [id number] <Conclusion> Sinus rhythm with premature atrial complexes Incomplete left bundle branch block Minimal voltage criteria for LVH, may be normal variant T wave abnormality, consider lateral ischemia Abnormal ECG
--- NOTE | 2018-07-18 12:43 | CARD ---
APPROVED REPORT Date of service: 07/18/2018 EXAM: Two-dimensional and M-mode echocardiogram with Doppler and color Doppler. INDICATION Dyspnea Chest Pain COPD SHEA, SYSTOLIC MURMMER RISK FACTORS Hypertension Hyperlipidemia Diabetes Smoking 2D DIMENSIONS IVSd1.4 (0.7-1.1cm)LVDd5.9 (3.9-5.9cm) LVOT Diameter2.1 (1.8-2.4cm)PWd1.4 (0.7-1.1cm) LA Epgonx40 (18-58mL)LVDs4.5 (2.5-4.0cm) FS (%) 24.2 %LVEF (%)47.4 (>50%) LVEF (Hill's)42.48 % M-Mode DIMENSIONS Left Atrium (MM)3.53 (2.5-4.0cm)IVSd0.91 (0.7-1.1cm) Aortic Root4.07 (2.2-3.7cm)LVDd6.86 (4.0-5.6cm) Aortic Cusp Exc.1.52 (1.5-2.0cm)PWd0.81 (0.7-1.1cm) FS (%) 37 %LVDs4.36 (2.0-3.8cm) LVEF (%)45 (>50%) Aortic Valve AoV Peak Axtcdnzt739.4cm/sAoV VJJ810.2cmAO Peak GR.66mmHg LVOT Peak Hhvmblby917.3cm/sLVOT VTI35.73cmAO Mean GR.42mmHg MARCELO (VMAX)1.49eu0VDI (VTI)1.36ho0TZ P 1/2 Alii316uq Mitral Valve MV E Yarwwcma749.8cm/sMV E Peak Gr.21mmHgMV A Vhricgaw83.5cm/s MV E Mean Gr.8mmHgMV PCE86eiK/A ratio1.8 MVA (PHT)2.68cm2 TDI Lateral E' Peak V5.64cm/sMedial E' Peak V5.58cm/sE/Lateral E'30.1 E/Medial E'30.4 Tricuspid Valve TR Peak Czmanbdi699nh/sTR Peak Gr.80wvMlMMCR92pwHk LEFT VENTRICLE The left ventricle is normal size. There is mild concentric left ventricular hypertrophy. Left ventricle systolic function is mildly impaired. The Ejection Fraction is 40-45%. There is hypokinesis in the apical inferolateral wall. Transmitral Doppler flow pattern is Grade II-pseudonormal filling dynamics. With elevated left ventricular end-diastolic pressure. There is no ventricular septal defect visualized. RIGHT VENTRICLE The right ventricle is borderline dilated. The right ventricular systolic function is normal. ATRIA The left atrium is mildly dilated. The right atrium is mildly dilated. AORTIC VALVE The aortic valve is moderately sclerotic. The aortic valve is tri-cuspid. There is moderate to severe aortic regurgitation. There is severe valvular aortic stenosis. Calculated aortic valve area is 1.0 cm2 with maximum pressure gradient of 98 mmHg and mean pressure gradient of 55 mmHg. The maximum gradient was from the right parasternal views. MITRAL VALVE Mitral annular calcification is moderate to severe. There is no evidence of mitral valve prolapse. Mitral regurgitation is trace to mild. TRICUSPID VALVE The tricuspid valve is normal in structure. There is mild to moderate tricuspid regurgitation. Right ventricular systolic pressure is estimated at greater than 60 mmHg. There is severe pulmonary hypertension. PULMONIC VALVE The pulmonic valve is not well visualized. There is trace pulmonic valvular regurgitation. GREAT VESSELS The aortic root is mildly enlarged. 4.1 cm The ascending aorta is Mildly dilated. 4.3 cm The IVC is dilated. PERICARDIAL EFFUSION There is no pericardial effusion. <Conclusion> There is mild concentric left ventricular hypertrophy. Left ventricle systolic function is mildly impaired. The Ejection Fraction is 40-45%. There is hypokinesis in the apical inferolateral wall. Transmitral Doppler flow pattern is Grade II-pseudonormal filling dynamics. With elevated left ventricular end-diastolic pressure. There is severe valvular aortic stenosis. There is moderate to severe aortic regurgitation. Mitral regurgitation is trace to mild. There is severe pulmonary hypertension. The ascending aorta is Mildly dilated. 4.3 cm
--- NOTE | 2018-07-18 12:58 | CP.PCM.PN ---
Subjective - Date & Time of Evaluation Date of Evaluation: 07/18/18 Time of Evaluation: 13:36 - Subjective Subjective: Mild dyspnea clinically improved still congested no fevers, chills or CP Objective - Vital Signs/Intake and Output Vital Signs (last 24 hours): Temp Pulse Resp BP Pulse Ox 97.9 F 78 22 106/62 100 07/18/18 08:00 07/18/18 11:19 07/18/18 08:00 07/18/18 11:48 07/18/18 08:00 Intake and Output: 07/18/18 07/18/18 06:59 18:59 Intake Total 300 Output Total 260 Balance 40 - Medications Medications: Current Medications Albuterol/Ipratropium (Duoneb 3 Mg/0.5 Mg (3 Ml) Ud) 3 ml INH RQ6 [facility] Last Admin: 07/18/18 07:27 Dose: 3 ml Aspirin (Ecotrin) 81 mg PO DAILY [facility] Last Admin: 07/18/18 11:48 Dose: 81 mg Clopidogrel Bisulfate (Plavix) 75 mg PO DAILY [facility] Last Admin: 07/18/18 10:37 Dose: 75 mg Enoxaparin Sodium (Lovenox) 40 mg SC DAILY [facility] Last Admin: 07/18/18 10:38 Dose: 40 mg Famotidine (Pepcid) 20 mg PO BID [facility] Last Admin: 07/18/18 10:38 Dose: 20 mg Furosemide (Lasix) 20 mg PO DAILY [facility] Last Admin: 07/18/18 11:48 Dose: 20 mg Azithromycin 500 mg/ Sodium (Chloride) 250 mls @ 250 mls/hr IVPB Q24H [facility]; Protocol Ceftriaxone Sodium (Rocephin Iv 1 Gm Duplex) 50 mls @ 100 mls/hr IVPB Q24H [facility]; Protocol Last Admin: 07/18/18 11:49 Dose: 100 mls/hr Insulin Human Regular (Novolin R) 0 unit SC ACHS [facility]; Protocol Last Admin: 07/18/18 12:23 Dose: 2 unit Lisinopril (Zestril) 2.5 mg PO DAILY [facility] Methylprednisolone (Solu-Medrol) 40 mg IVP DAILY [facility] Last Admin: 07/18/18 10:38 Dose: 40 mg Montelukast Sodium (Singulair) 10 mg PO HS [facility] Last Admin: 07/17/18 21:19 Dose: 10 mg Pneumococcal Polyvalent Vaccine (Pneumovax 23 Vaccine) 0.5 ml IM .ONCE ONE Stop: 07/19/18 10:01 Rosuvastatin Calcium (Crestor) 5 mg PO HS [facility] Last Admin: 07/17/18 21:19 Dose: 5 mg - Labs Labs: 07/18/18 07:36 07/18/18 07:36 PT 12.7 SECONDS (9.7-12.2) H 07/17/18 05:19 INR 1.2 07/17/18 05:19 APTT 28.0 SECONDS (21-34) 07/18/18 07:36 - Constitutional Appears: No Acute Distress - Head Exam Head Exam: ATRAUMATIC, NORMAL INSPECTION, NORMOCEPHALIC - Eye Exam Eye Exam: EOMI, Normal appearance - ENT Exam ENT Exam: Mucous Membranes Moist, Normal Oropharynx - Respiratory Exam Respiratory Exam: Rales, Rhonchi, Wheezes. absent: Respiratory Distress - Cardiovascular Exam Cardiovascular Exam: REGULAR RHYTHM, JVD, +S1, Murmur (3/6 BARAK mid-late peaking with soft A2, RUSB) - GI/Abdominal Exam GI & Abdominal Exam: Soft. absent: Tenderness - Extremities Exam Extremities Exam: Normal Inspection. absent: Calf Tenderness, Pedal Edema - Neurological Exam Neurological Exam: Alert, Oriented x3 - Skin Skin Exam: Normal Color, Warm Assessment and Plan - Assessment and Plan (Free Text) Assessment: 82 year old man with acute systolic and diastolic CHF improved with IV lasix and Bipap 2D echo: EF 45%, LVH, aortic root enlargement, moderate-severe with a dimensi onless index of 0.39, moderate AI, Grade 2 DD, iinc filling pressures, severe PULM HTN at 65mmhg. > CXR: congestion, CM, aortic enlargement with Calcification ASHD DAPT and statin HTN is chronic and stable on current regimine Diabetes is chronic and labile on insulin Hyperlipidemia is chronic and stable on crestor LDL at 40 is at goal Aortic stenosis: > patient has had discussions in past regards potential need for valve surgery: given sxs and severity he meets criteria. Patient has stated unwillingness to undergo surgery...need to re-discuss this option with family and proceed accordingly....Once better diureses this can be done as outpatient. PLAN: Meds as ordered Albuterol/Ipratropium (Duoneb 3 Mg/0.5 Mg (3 Ml) Ud) 3 ml INH RQ6 [facility] Last Admin: 07/18/18 07:27 Dose: 3 ml Aspirin (Ecotrin) 81 mg PO DAILY [facility] Last Admin: 07/18/18 11:48 Dose: 81 mg Clopidogrel Bisulfate (Plavix) 75 mg PO DAILY [facility] Last Admin: 07/18/18 10:37 Dose: 75 mg Enoxaparin Sodium (Lovenox) 40 mg SC DAILY [facility] Last Admin: 07/18/18 10:38 Dose: 40 mg Famotidine (Pepcid) 20 mg PO BID [facility] Last Admin: 07/18/18 10:38 Dose: 20 mg Furosemide (Lasix) 20 mg PO DAILY [facility] Last Admin: 07/18/18 11:48 Dose: 20 mg Azithromycin 500 mg/ Sodium (Chloride) 250 mls @ 250 mls/hr IVPB Q24H [facility]; Protocol Ceftriaxone Sodium (Rocephin Iv 1 Gm Duplex) 50 mls @ 100 mls/hr IVPB Q24H [facility]; Protocol Last Admin: 07/18/18 11:49 Dose: 100 mls/hr Insulin Human Regular (Novolin R) 0 unit SC ACHS [facility]; Protocol Last Admin: 07/18/18 12:23 Dose: 2 unit Lisinopril (Zestril) 2.5 mg PO DAILY [facility] Methylprednisolone (Solu-Medrol) 40 mg IVP DAILY [facility] Last Admin: 07/18/18 10:38 Dose: 40 mg Montelukast Sodium (Singulair) 10 mg PO HS [facility] Last Admin: 07/17/18 21:19 Dose: 10 mg Pneumococcal Polyvalent Vaccine (Pneumovax 23 Vaccine) 0.5 ml IM .ONCE ONE Stop: 07/19/18 10:01 Rosuvastatin Calcium (Crestor) 5 mg PO HS [facility] Last Admin: 07/17/18 21:19 Dose: 5 mg
[2018-07-18] MEDS: Azithromycin 500 MG in Sodium Chloride 0.9% 250 ML IVPB SCH (14:20)
--- NOTE | 2018-07-18 15:30 | CT ---
Date of service: 07/18/2018 CT chest without IV contrast Indication: worsening effusion Technique: Contiguous axial images were obtained through the chest without intravenous contrast enhancement. Sagittal and coronal reconstructions were generated and reviewed. This CT exam was performed using 1 or more of the following dose reduction techniques: Automated exposure control, adjustment of the MAA and/or kV according to patient size, and/or use of iterative reconstruction technique. Radiation dose (DLP): 327.74 MGy-cm. Comparison: Chest x-ray performed 07/18/18 Findings: Visualized portions of the inferior thyroid gland appear unremarkable. The mediastinal and hilar vascular structures appear within normal limits. Cardiomegaly. Aortic ectasia. Dense coronary artery and valvular calcifications. Sub cm mediastinal lymph nodes, nonspecific. Moderate bilateral pleural effusions and associated consolidations. No pneumothorax. Limited visualization of the noncontrast upper abdomen appears grossly unremarkable. Degenerative changes of the spine. Kyphosis. Osseous demineralization. Impression: Moderate bilateral pleural effusions and associated consolidations. Cardiomegaly. Ectatic aorta. Dense coronary artery and valvular calcifications. Sub cm mediastinal lymph nodes, nonspecific.
[2018-07-19] VITALS: RESP 20
[2018-07-19] MEDS: Albuterol-Ipratrop 3 mg / 0.5 (3 ml) UD INH SCH ×3 (01:10→19:14)
--- NOTE | 2018-07-19 06:54 | CP.PCM.PN ---
<Sedrick Clifton - Last Filed: 07/19/18 15:02> Subjective - Date & Time of Evaluation Date of Evaluation: 07/19/18 Time of Evaluation: 07:45 - Subjective Subjective: Medicine progress note for hospitalist Dr. Morgan. Pt seen and examined at bedside. pt reports improved work of breathing from when he was initially admitted; however, pt states he still has significiant SOB. Pt reports he cannot walk from bed to the bathroom (approximately 10 ft) without getting sob. Pt denies headaches, vision changes, chest pain, nausea, vomiting, fevers, chills, le swelling, abdominal pain, diarrhea, constipation. Pt is hesitant for valve replacement as he states he had a friend who while receiving the procedure. Pt states he would require more time to consider surgery. Objective - Vital Signs/Intake and Output Vital Signs (last 24 hours): Temp Pulse Resp BP Pulse Ox 98.5 F 80 20 103/52 L 96 07/18/18 23:20 07/18/18 23:36 07/18/18 23:20 07/18/18 23:20 07/18/18 23:20 Intake and Output: 07/18/18 07/19/18 18:59 06:59 Intake Total 850 Balance 850 - Medications Medications: Current Medications Albuterol/Ipratropium (Duoneb 3 Mg/0.5 Mg (3 Ml) Ud) 3 ml INH RQ6 [facility] Last Admin: 07/19/18 01:10 Dose: 3 ml Aspirin (Ecotrin) 81 mg PO DAILY [facility] Last Admin: 07/18/18 11:48 Dose: 81 mg Clopidogrel Bisulfate (Plavix) 75 mg PO DAILY [facility] Last Admin: 07/18/18 10:37 Dose: 75 mg Docusate Sodium (Colace) 100 mg PO BID [facility] Last Admin: 07/18/18 17:51 Dose: 100 mg Enoxaparin Sodium (Lovenox) 40 mg SC DAILY [facility] Last Admin: 07/18/18 10:38 Dose: 40 mg Famotidine (Pepcid) 20 mg PO BID [facility] Last Admin: 07/18/18 17:51 Dose: 20 mg Furosemide (Lasix) 20 mg PO DAILY [facility] Last Admin: 07/18/18 11:48 Dose: 20 mg Azithromycin 500 mg/ Sodium (Chloride) 250 mls @ 250 mls/hr IVPB Q24H [facility]; Protocol Last Admin: 07/18/18 14:20 Dose: 250 mls/hr Ceftriaxone Sodium (Rocephin Iv 1 Gm Duplex) 50 mls @ 100 mls/hr IVPB Q24H [facility]; Protocol Last Admin: 07/18/18 11:49 Dose: 100 mls/hr Insulin Human Regular (Novolin R) 0 unit SC ACHS [facility]; Protocol Last Admin: 07/18/18 22:37 Dose: Not Given Lisinopril (Zestril) 2.5 mg PO DAILY [facility] Methylprednisolone (Solu-Medrol) 40 mg IVP DAILY [facility] Last Admin: 07/18/18 10:38 Dose: 40 mg Montelukast Sodium (Singulair) 10 mg PO HS [facility] Last Admin: 07/18/18 21:08 Dose: 10 mg Pneumococcal Polyvalent Vaccine (Pneumovax 23 Vaccine) 0.5 ml IM .ONCE ONE Stop: 07/19/18 10:01 Rosuvastatin Calcium (Crestor) 5 mg PO HS [facility] Last Admin: 07/18/18 21:08 Dose: 5 mg - Labs Labs: 07/18/18 07:36 07/18/18 07:36 PT 12.7 SECONDS (9.7-12.2) H 07/17/18 05:19 INR 1.2 07/17/18 05:19 APTT 28.0 SECONDS (21-34) 07/18/18 07:36 - Constitutional Appears: Non-toxic, No Acute Distress - Head Exam Head Exam: NORMAL INSPECTION - Eye Exam Eye Exam: Normal appearance - ENT Exam ENT Exam: Mucous Membranes Moist - Respiratory Exam Respiratory Exam: Decreased Breath Sounds, Rales. absent: Rhonchi, Wheezes Additional comments: dullness on percussion on RLL & RML > LLL - Cardiovascular Exam Cardiovascular Exam: JVD, +S1, +S2, Murmur Additional comments: 3/6 2nd intercostal space, confirmed per echo - GI/Abdominal Exam GI & Abdominal Exam: Soft, Normal Bowel Sounds. absent: Firm, Guarding, Rigid - Extremities Exam Extremities Exam: Full ROM, Normal Inspection. absent: Calf Tenderness, Pedal Edema - Back Exam Back Exam: absent: CVA tenderness (L), CVA tenderness (R) - Neurological Exam Neurological Exam: Alert, Awake, Oriented x3 - Psychiatric Exam Psychiatric exam: Normal Affect, Normal Mood - Skin Skin Exam: Dry, Intact, Normal Color, Warm Assessment and Plan - Assessment and Plan (Free Text) Assessment: 82 year old male with past medical history of HTN, CHF is admitted for respirato ry distress 2/2 CHF exacerbation, has severe aortic stenosis and persistent SOB with exertion Plan: Respiratory distress CHF exacerbation w/ reduced EF Aortic Stenosis - Severe Aortic regurgitation- Moderate - ProBNP [id number]. troponins x3 negative - CXR showed B/L effusions wit R>L. - Repeat CXR 07/18 moderate to severe venous congestion, b/l pleural effusion, opacity at lung base - trops X 3 negative, PVC on ekg - blood cultures negative 48H - CT chest - b/l pleural effusions with opacifcations, cardiomegaly - ECHO: EF of 40-45%, severe aortic stenosis, moderate to severe aortic regurgitation, severe pulmonary HTN, mild dilated ascending aorta, MARCELO 1.08 cm - lasix reduced to 20 IVP daily due to BP in 100s - BiPAP prn - c/w abx zithromax & ceftraixone for consolidation on cxr - duonebs PRN - F/u cardio, Dr. Echeverria recs Cardio, F/u outpatient - Bipap PRN Hyponatremia - Na resolving from high 120s to now low 130s - likely due to fluid overload - will fluid restrict - continue to monitor History of HTN History of ASHD - unsure of medication pt is taking at home - BP in 100s - due to vascular congestion, lasix 40 IVP daily initially, now reducing to 20 IVP daily - per cardio, DAPT, aspirin 81 mg, plavix 75 mg, rosuvastatin 5 mg daily History of DM - pt reports taking a medication in [place] for diabetes; unsure of name - B.S. 120s to 180s - hgA1c 5.6, on ISS in hospital - start lisinopril 2.5mg daily for renal protection Prophylaxis - Protonix - SCDs, lovenox <Humberto Morgan H - Last Filed: 07/19/18 16:16> Objective - Vital Signs/Intake and Output Vital Signs (last 24 hours): Temp Pulse Resp BP Pulse Ox 97.7 F 71 20 100/51 L 96 07/19/18 15:44 07/19/18 15:44 07/19/18 15:44 07/19/18 15:44 07/19/18 15:44 Intake and Output: 07/19/18 07/19/18 06:59 18:59 Intake Total 400 Balance 400 - Medications Medications: Current Medications Albuterol/Ipratropium (Duoneb 3 Mg/0.5 Mg (3 Ml) Ud) 3 ml INH RQ6 [facility] Last Admin: 07/19/18 13:47 Dose: Not Given Aspirin (Ecotrin) 81 mg PO DAILY [facility] Last Admin: 07/19/18 10:43 Dose: 81 mg Clopidogrel Bisulfate (Plavix) 75 mg PO DAILY [facility] Last Admin: 07/19/18 10:43 Dose: 75 mg Docusate Sodium (Colace) 100 mg PO BID [facility] Last Admin: 07/19/18 10:43 Dose: 100 mg Enoxaparin Sodium (Lovenox) 40 mg SC DAILY [facility] Last Admin: 07/19/18 10:45 Dose: 40 mg Famotidine (Pepcid) 20 mg PO BID [facility] Last Admin: 07/19/18 10:44 Dose: 20 mg Furosemide (Lasix) 20 mg PO DAILY [facility] Last Admin: 07/19/18 11:49 Dose: Not Given Azithromycin 500 mg/ Sodium (Chloride) 250 mls @ 250 mls/hr IVPB Q24H [facility]; Protocol Last Admin: 07/19/18 14:04 Dose: 250 mls/hr Ceftriaxone Sodium (Rocephin Iv 1 Gm Duplex) 50 mls @ 100 mls/hr IVPB Q24H [facility]; Protocol Last Admin: 07/19/18 14:00 Dose: 100 mls/hr Insulin Human Regular (Novolin R) 0 unit SC [facility]; Protocol Last Admin: 07/19/18 11:49 Dose: Not Given Lisinopril (Zestril) 2.5 mg PO DAILY [facility] Last Admin: 07/19/18 10:43 Dose: 2.5 mg Methylprednisolone (Solu-Medrol) 40 mg IVP DAILY [facility] Last Admin: 07/19/18 10:43 Dose: 40 mg Montelukast Sodium (Singulair) 10 mg PO HS [facility] Last Admin: 07/18/18 21:08 Dose: 10 mg Rosuvastatin Calcium (Crestor) 5 mg PO HS [facility] Last Admin: 07/18/18 21:08 Dose: 5 mg - Labs Labs: 07/19/18 08:09 07/19/18 08:09 PT 12.7 SECONDS (9.7-12.2) H 07/17/18 05:19 INR 1.2 07/17/18 05:19 APTT 28.0 SECONDS (21-34) 07/18/18 07:36 Attending/Attestation - Attestation I have personally seen and examined this patient.: Yes I have fully participated in the care of the patient.: Yes I have reviewed all pertinent clinical information, including history, physical exam and plan: Yes Notes (Text): 07/19/18 16:11 Medical attending: Patient was seen and examined by me. Agree with the above note by the resident The patient was not in any acute distress and appeared comfortable at rest. However family explain that he is very short of breath after walking short distances to the bathroom. The patient reports breathing is better but still has coughing Per our discussion with the family they explain that the patient has been reluctant in the past forvalve replacenet for the aortic stenosis. The patient's family explained that he does not have insurance and that they applying to Medicare. He previously had medicare when he was living in [place]. Humberto Morgan
[2018-07-19 08:15] LABS: BASO % 0.4 % (0.0-2.0); EOS % 0.3 % (0.0-4.0); HEMOGLOBIN 9.3 g/dL (12.0-18.0); LYMPH # 1.4 K/uL (1.0-4.3); LYMPH % 18.8 % (20.0-40.0); MEAN CELL VOLUME 95.1 fL (80.0-94.0); MEAN CORPUSCULAR HEMOGLOBIN 32.3 pg (27.0-31.0); MEAN PLATELET VOLUME 7.7 fL (7.2-11.7); MONO % 13.7 % (0.0-10.0); NEUT # 4.9 K/uL (1.8-7.0); NEUT % 66.8 % (50.0-75.0); RBC 2.89 Mil/uL (4.40-5.90); RED CELL DISTRIBUTION WIDTH 14.9 % (11.5-14.5); WHITE BLOOD COUNT 7.3 K/uL (4.8-10.8)
[2018-07-19 08:35] LABS: ALB/GLOB RATIO 1.4 (1.0-2.1); ALBUMIN 3.8 g/dL (3.5-5.0); ALT/SGPT 28 U/L (21-72); AST/SGOT 40 U/L (17-59); BLOOD UREA NITROGEN 29 mg/dL (9-20); CALCIUM 9.3 mg/dl (8.6-10.4); GFR NON-AFRICAN AMERICAN > 60
--- NOTE | 2018-07-19 09:25 | RAD ---
Date of service: 07/19/2018 HISTORY: pleural effusions COMPARISON: 07/18/2018 FINDINGS: LUNGS: The lungs are well inflated. There is interval mild improved aeration in the lungs with persistent severe pulmonary venous congestion and interstitial pulmonary edema. PLEURA: Redemonstration of bilateral pleural effusions, worse on the right. CARDIOVASCULAR: Persistent severe cardiomegaly with prominent central vasculature. There are aortic atherosclerotic calcifications present. OSSEOUS STRUCTURES: Within normal limits for the patient's age. VISUALIZED UPPER ABDOMEN: Normal. OTHER FINDINGS: None. IMPRESSION: Improving congestive heart failure with persistent bilateral effusions, worse on the right.
[2018-07-19] MEDS ORDERED: Pneumococcal 23-Valent Vaccine IM ONE (10:00)
[2018-07-19] MEDS: (Novolin R) Insulin Human Regular 100 units/ml vial SC SCH ×3 (10:39→17:13)
[2018-07-19] MEDS: MethylPREDNISolone 40 mg Vial IVP SCH (10:43)
[2018-07-19] MEDS: Enoxaparin 40 mg Syringe SC SCH (10:45)
--- NOTE | 2018-07-19 12:49 | CARD ---
APPROVED REPORT Date of service: 07/17/2018 EKG Measurement Heart [id number] <Conclusion> Normal sinus rhythm Nonspecific ST and T wave abnormality Prolonged QT Abnormal ECG
--- NOTE | 2018-07-19 13:05 | CP.PCM.PN ---
<Jude Escobar - Last Filed: 07/19/18 13:05> Subjective - Date & Time of Evaluation Date of Evaluation: 07/19/18 Time of Evaluation: 13:04 - Subjective Subjective: events reviewed Objective - Vital Signs/Intake and Output Vital Signs (last 24 hours): Temp Pulse Resp BP Pulse Ox 97.9 F 61 20 103/52 L 99 07/19/18 08:27 07/19/18 08:56 07/19/18 08:27 07/19/18 11:49 07/19/18 08:27 - Medications Medications: Current Medications Albuterol/Ipratropium (Duoneb 3 Mg/0.5 Mg (3 Ml) Ud) 3 ml INH RQ6 [facility] Last Admin: 07/19/18 01:10 Dose: 3 ml Aspirin (Ecotrin) 81 mg PO DAILY [facility] Last Admin: 07/19/18 10:43 Dose: 81 mg Clopidogrel Bisulfate (Plavix) 75 mg PO DAILY [facility] Last Admin: 07/19/18 10:43 Dose: 75 mg Docusate Sodium (Colace) 100 mg PO BID [facility] Last Admin: 07/19/18 10:43 Dose: 100 mg Enoxaparin Sodium (Lovenox) 40 mg SC DAILY [facility] Last Admin: 07/19/18 10:45 Dose: 40 mg Famotidine (Pepcid) 20 mg PO BID [facility] Last Admin: 07/19/18 10:44 Dose: 20 mg Furosemide (Lasix) 20 mg PO DAILY [facility] Last Admin: 07/19/18 11:49 Dose: Not Given Azithromycin 500 mg/ Sodium (Chloride) 250 mls @ 250 mls/hr IVPB Q24H [facility]; Protocol Last Admin: 07/18/18 14:20 Dose: 250 mls/hr Ceftriaxone Sodium (Rocephin Iv 1 Gm Duplex) 50 mls @ 100 mls/hr IVPB Q24H [facility]; Protocol Last Admin: 07/18/18 11:49 Dose: 100 mls/hr Insulin Human Regular (Novolin R) 0 unit SC ACHS [facility]; Protocol Last Admin: 07/19/18 11:49 Dose: Not Given Lisinopril (Zestril) 2.5 mg PO DAILY [facility] Last Admin: 07/19/18 10:43 Dose: 2.5 mg Methylprednisolone (Solu-Medrol) 40 mg IVP DAILY [facility] Last Admin: 07/19/18 10:43 Dose: 40 mg Montelukast Sodium (Singulair) 10 mg PO HS [facility] Last Admin: 07/18/18 21:08 Dose: 10 mg Rosuvastatin Calcium (Crestor) 5 mg PO HS [facility] Last Admin: 07/18/18 21:08 Dose: 5 mg - Labs Labs: 07/19/18 08:09 07/19/18 08:09 PT 12.7 SECONDS (9.7-12.2) H 07/17/18 05:19 INR 1.2 07/17/18 05:19 APTT 28.0 SECONDS (21-34) 07/18/18 07:36 Assessment and Plan - Assessment and Plan (Free Text) Assessment: - Constitutional Appears: No Acute Distress - Head Exam Head Exam: ATRAUMATIC, NORMAL INSPECTION, NORMOCEPHALIC - Eye Exam Eye Exam: EOMI, Normal appearance - ENT Exam ENT Exam: Mucous Membranes Moist, Normal Oropharynx - Respiratory Exam Respiratory Exam: Rales, Rhonchi, Wheezes. absent: Respiratory Distress - Cardiovascular Exam Cardiovascular Exam: REGULAR RHYTHM, JVD, +S1, Murmur (3/6 BARAK mid-late peaking with soft A2, RUSB) - GI/Abdominal Exam GI & Abdominal Exam: Soft. absent: Tenderness - Extremities Exam Extremities Exam: Normal Inspection. absent: Calf Tenderness, Pedal Edema - Neurological Exam Neurological Exam: Alert, Oriented x3 - Skin Skin Exam: Normal Color, Warm Assessment and Plan - Assessment and Plan (Free Text) Assessment: 82 year old man with acute systolic and diastolic CHF improved with IV lasix and Bipap 2D echo: EF 45%, LVH, aortic root enlargement, moderate-severe with a dimensionless index of 0.39, moderate AI, Grade 2 DD, iinc filling pressures, severe PULM HTN at 65mmhg. > CXR: congestion, CM, aortic enlargement with Calcification ASHD chronic and stable on DAPT and statin HTN is chronic and stable on current regimine Diabetes is chronic and labile on insulin Hyperlipidemia is chronic and stable on crestor LDL at 40 is at goal Aortic stenosis: Follow up with Dr. Echeverria 1-2 weeks after d/c to discuss further work up and surveillance. <Humberto Morgan - Last Filed: 07/19/18 16:01> Objective - Vital Signs/Intake and Output Vital Signs (last 24 hours): Temp Pulse Resp BP Pulse Ox 97.7 F 71 20 100/51 L 96 07/19/18 15:44 07/19/18 15:44 07/19/18 15:44 07/19/18 15:44 07/19/18 15:44 Intake and Output: 07/19/18 07/19/18 06:59 18:59 Intake Total 400 Balance 400 - Medications Medications: Current Medications Albuterol/Ipratropium (Duoneb 3 Mg/0.5 Mg (3 Ml) Ud) 3 ml INH RQ6 [facility] Last Admin: 07/19/18 13:47 Dose: Not Given Aspirin (Ecotrin) 81 mg PO DAILY [facility] Last Admin: 07/19/18 10:43 Dose: 81 mg Clopidogrel Bisulfate (Plavix) 75 mg PO DAILY [facility] Last Admin: 07/19/18 10:43 Dose: 75 mg Docusate Sodium (Colace) 100 mg PO BID [facility] Last Admin: 07/19/18 10:43 Dose: 100 mg Enoxaparin Sodium (Lovenox) 40 mg SC DAILY [facility] Last Admin: 07/19/18 10:45 Dose: 40 mg Famotidine (Pepcid) 20 mg PO BID [facility] Last Admin: 07/19/18 10:44 Dose: 20 mg Furosemide (Lasix) 20 mg PO DAILY [facility] Last Admin: 07/19/18 11:49 Dose: Not Given Azithromycin 500 mg/ Sodium (Chloride) 250 mls @ 250 mls/hr IVPB Q24H [facility]; Protocol Last Admin: 07/19/18 14:04 Dose: 250 mls/hr Ceftriaxone Sodium (Rocephin Iv 1 Gm Duplex) 50 mls @ 100 mls/hr IVPB Q24H [facility]; Protocol Last Admin: 07/19/18 14:00 Dose: 100 mls/hr Insulin Human Regular (Novolin R) 0 unit SC ACHS [facility]; Protocol Last Admin: 07/19/18 11:49 Dose: Not Given Lisinopril (Zestril) 2.5 mg PO DAILY [facility] Last Admin: 07/19/18 10:43 Dose: 2.5 mg Methylprednisolone (Solu-Medrol) 40 mg IVP DAILY [facility] Last Admin: 07/19/18 10:43 Dose: 40 mg Montelukast Sodium (Singulair) 10 mg PO HS [facility] Last Admin: 07/18/18 21:08 Dose: 10 mg Rosuvastatin Calcium (Crestor) 5 mg PO [facility] Last Admin: 07/18/18 21:08 Dose: 5 mg - Labs Labs: 07/19/18 08:09 07/19/18 08:09 PT 12.7 SECONDS (9.7-12.2) H 07/17/18 05:19 INR 1.2 07/17/18 05:19 APTT 28.0 SECONDS (21-34) 07/18/18 07:36 Attending/Attestation - Attestation I have personally seen and examined this patient.: Yes I have fully participated in the care of the patient.: Yes I have reviewed all pertinent clinical information, including history, physical exam and plan: Yes Notes (Text): 07/19/18 15:58 Medical attending: Patient was seen and examined by me. Agree with the above note by the resident The patient was with his brother, grandosn and granddaughter. The patient has been in the past refusing intervention for his severe aortic stenosis. I justin out a picture to help explain to the patient's family the pleural effusion and the aortic stensosis. Patient reports feeling better however he is easily short of breath when trying to walk around from bed to restroom Humberto Morgan
[2018-07-19] MEDS: cefTRIAXone IV 1 gm in Dextros 50 ML IVPB SCH (14:00)
[2018-07-19] MEDS: Azithromycin 500 MG in Sodium Chloride 0.9% 250 ML IVPB SCH (14:04)
[2018-07-19] MEDS ORDERED: Petrolatum Oint Foilpak (5 gm) TOP ONE (20:41)
[2018-07-20] MEDS: Albuterol-Ipratrop 3 mg / 0.5 (3 ml) UD INH SCH ×4 (01:14→19:50)
[2018-07-20 07:48] LABS: BASO % 0.2 % (0.0-2.0); EOS % 0.3 % (0.0-4.0); HEMOGLOBIN 9.4 g/dL (12.0-18.0); LYMPH # 1.5 K/uL (1.0-4.3); LYMPH % 22.8 % (20.0-40.0); MEAN CELL VOLUME 95.1 fL (80.0-94.0); MEAN CORPUSCULAR HEMOGLOBIN 33.3 pg (27.0-31.0); MEAN PLATELET VOLUME 7.5 fL (7.2-11.7); MONO # 1.1 K/uL (0.0-0.8); MONO % 15.9 % (0.0-10.0); NEUT # 4.1 K/uL (1.8-7.0); NEUT % 60.8 % (50.0-75.0); RBC 2.83 Mil/uL (4.40-5.90); RED CELL DISTRIBUTION WIDTH 14.8 % (11.5-14.5); WHITE BLOOD COUNT 6.7 K/uL (4.8-10.8)
[2018-07-20] MEDS: (Novolin R) Insulin Human Regular 100 units/ml vial SC SCH ×4 (08:06→22:00)
[2018-07-20 08:35] LABS: ALB/GLOB RATIO 1.4 (1.0-2.1); ALBUMIN 3.6 g/dL (3.5-5.0); ALT/SGPT 31 U/L (21-72); AST/SGOT 38 U/L (17-59); BLOOD UREA NITROGEN 27 mg/dL (9-20); CALCIUM 8.9 mg/dl (8.6-10.4); GFR NON-AFRICAN AMERICAN > 60
[2018-07-20] MEDS: Enoxaparin 40 mg Syringe SC SCH (09:22)
[2018-07-20] MEDS: MethylPREDNISolone 40 mg Vial IVP SCH (09:22)
--- NOTE | 2018-07-20 09:25 | CP.PCM.PN ---
<Sedrick Clifton M - Last Filed: 07/20/18 14:58> Subjective - Date & Time of Evaluation Date of Evaluation: 07/20/18 Time of Evaluation: 09:20 - Subjective Subjective: Medicine progress note for hospitalist Dr. Morgan. Pt seen and examined at bedside. Pt reports improved work of breathing; however, pt still reports some SOB upon exertion. Pt denies headaches, chest pain, abdominal pain, nausea, vomiting, fevers, chills, burning on urination. Objective - Vital Signs/Intake and Output Vital Signs (last 24 hours): Temp Pulse Resp BP Pulse Ox 98.2 F 65 20 110/51 L 96 07/19/18 23:20 07/20/18 07:50 07/19/18 23:20 07/20/18 09:22 07/19/18 23:20 Intake and Output: 07/20/18 07/20/18 06:59 18:59 Intake Total 300 Balance 300 - Medications Medications: Current Medications Albuterol/Ipratropium (Duoneb 3 Mg/0.5 Mg (3 Ml) Ud) 3 ml INH RQ6 [facility] Last Admin: 07/20/18 07:34 Dose: 3 ml Aspirin (Ecotrin) 81 mg PO DAILY [facility] Last Admin: 07/20/18 09:21 Dose: 81 mg Clopidogrel Bisulfate (Plavix) 75 mg PO DAILY [facility] Last Admin: 07/20/18 09:22 Dose: 75 mg Docusate Sodium (Colace) 100 mg PO BID [facility] Last Admin: 07/20/18 09:22 Dose: 100 mg Enoxaparin Sodium (Lovenox) 40 mg SC DAILY [facility] Last Admin: 07/20/18 09:22 Dose: 40 mg Famotidine (Pepcid) 20 mg PO BID [facility] Last Admin: 07/20/18 09:21 Dose: 20 mg Furosemide (Lasix) 20 mg PO DAILY [facility] Last Admin: 07/20/18 09:22 Dose: 20 mg Azithromycin 500 mg/ Sodium (Chloride) 250 mls @ 250 mls/hr IVPB Q24H [facility]; Protocol Last Admin: 07/19/18 14:04 Dose: 250 mls/hr Ceftriaxone Sodium (Rocephin Iv 1 Gm Duplex) 50 mls @ 100 mls/hr IVPB Q24H [facility]; Protocol Last Admin: 07/19/18 14:00 Dose: 100 mls/hr Insulin Human Regular (Novolin R) 0 unit SC ACHS [facility]; Protocol Last Admin: 07/20/18 08:06 Dose: Not Given Lisinopril (Zestril) 2.5 mg PO DAILY [facility] Last Admin: 07/20/18 09:22 Dose: 2.5 mg Methylprednisolone (Solu-Medrol) 40 mg IVP DAILY [facility] Last Admin: 07/20/18 09:22 Dose: 40 mg Montelukast Sodium (Singulair) 10 mg PO [facility] Last Admin: 07/19/18 21:29 Dose: 10 mg Rosuvastatin Calcium (Crestor) 5 mg PO HS [facility] Last Admin: 07/19/18 21:29 Dose: 5 mg - Labs Labs: 07/20/18 07:29 07/20/18 07:29 PT 12.7 SECONDS (9.7-12.2) H 07/17/18 05:19 INR 1.2 07/17/18 05:19 APTT 28.0 SECONDS (21-34) 07/18/18 07:36 - Constitutional Appears: Non-toxic, No Acute Distress - Head Exam Head Exam: NORMAL INSPECTION - Eye Exam Eye Exam: EOMI, Normal appearance - ENT Exam ENT Exam: Mucous Membranes Moist - Respiratory Exam Respiratory Exam: Decreased Breath Sounds, Rales - Cardiovascular Exam Cardiovascular Exam: +S1, +S2, Murmur - GI/Abdominal Exam GI & Abdominal Exam: Soft, Normal Bowel Sounds. absent: Firm, Guarding, Rigid - Extremities Exam Extremities Exam: Full ROM, Normal Inspection. absent: Calf Tenderness, Pedal Edema - Back Exam Back Exam: absent: CVA tenderness (L), CVA tenderness (R) - Neurological Exam Neurological Exam: Alert, Awake, Oriented x3 - Psychiatric Exam Psychiatric exam: Normal Affect, Normal Mood - Skin Skin Exam: Dry, Intact, Normal Color, Warm Assessment and Plan - Assessment and Plan (Free Text) Assessment: 82 year old male with past medical history of HTN, CHF is admitted for respirat ory distress 2/2 CHF exacerbation, has severe aortic stenosis and persistent SOB with exertion Plan: Respiratory distress CHF exacerbation w/ reduced EF Aortic Stenosis - Severe Aortic regurgitation- Moderate Bilateral pleural effusions - ProBNP 59450. troponins x3 negative - CXR showed B/L effusions wit R>L. - Repeat CXR 07/18 moderate to severe venous congestion, b/l pleural effusion, opacity at lung base - trops X 3 negative, PVC on ekg - blood cultures negative 48H - CT chest - b/l pleural effusions with opacifcations, cardiomegaly - ECHO: EF of 40-45%, severe aortic stenosis, moderate to severe aortic regurgitation, severe pulmonary HTN, mild dilated ascending aorta, MARCELO 1.08 cm - lasix reduced to 20 PO daily due to BP in 100s - BiPAP prn - d/c azithromyicin & ceftraixone as afebrile - duonebs PRN - c/w montelukast (home medication) - F/u cardio, Dr. Echeverria recs Cardio, F/u outpatient - F/u pulm, Dr. Javon cantu - no need for thoracentesis History of HTN History of ASHD - unsure of medication pt is taking at home - BP in 100s - due to vascular congestion, lasix 40 IVP daily initially, now reducing to 20 PO daily - per cardio, DAPT, aspirin 81 mg, plavix 75 mg, rosuvastatin 5 mg daily History of DM - pt reports taking a medication in [place] for diabetes; unsure of name - B.S. 120s to 180s - hgA1c 5.6, on ISS in hospital - start lisinopril 2.5mg daily for renal protection - c/w metformin upon discharge (home medication) Hyponatremia - resolved - Na resolving from high 120s to now low 130s - likely due to fluid overload - will fluid restrict - continue to monitor Prophylaxis - Protonix - SCDs, lovenox Dispo: Pending overnight observation, patient is possible candidate for d/c on 07/21. Pt has persistent mild pleural effusions that do not need to have thoracentesis at this time. Will need to reconcile BP meds upon discharge as pt has been SBP in 110s on admission w/o taking his beta kirsten. <Humberto Morgan - Last Filed: 07/20/18 17:35> Objective - Vital Signs/Intake and Output Vital Signs (last 24 hours): Temp Pulse Resp BP Pulse Ox 98.0 F 72 20 100/54 L 94 L 07/20/18 15:00 07/20/18 15:00 07/20/18 15:00 07/20/18 15:00 07/20/18 15:00 Intake and Output: 07/20/18 07/20/18 06:59 18:59 Intake Total 300 Balance 300 - Medications Medications: Current Medications Albuterol/Ipratropium (Duoneb 3 Mg/0.5 Mg (3 Ml) Ud) 3 ml INH RQ6 [facility] Last Admin: 07/20/18 07:34 Dose: 3 ml Aspirin (Ecotrin) 81 mg PO DAILY [facility] Last Admin: 07/20/18 09:21 Dose: 81 mg Clopidogrel Bisulfate (Plavix) 75 mg PO DAILY [facility] Last Admin: 07/20/18 09:22 Dose: 75 mg Docusate Sodium (Colace) 100 mg PO BID [facility] Last Admin: 07/20/18 09:22 Dose: 100 mg Enoxaparin Sodium (Lovenox) 40 mg SC DAILY [facility] Last Admin: 07/20/18 09:22 Dose: 40 mg Famotidine (Pepcid) 20 mg PO BID [facility] Last Admin: 07/20/18 09:21 Dose: 20 mg Furosemide (Lasix) 20 mg PO DAILY [facility] Last Admin: 07/20/18 09:22 Dose: 20 mg Insulin Human Regular (Novolin R) 0 unit SC [facility]; Protocol Last Admin: 07/20/18 12:24 Dose: Not Given Lisinopril (Zestril) 2.5 mg PO DAILY [facility] Last Admin: 07/20/18 09:22 Dose: 2.5 mg Methylprednisolone (Solu-Medrol) 40 mg IVP DAILY [facility] Last Admin: 07/20/18 09:22 Dose: 40 mg Montelukast Sodium (Singulair) 10 mg PO [facility] Last Admin: 07/19/18 21:29 Dose: 10 mg Rosuvastatin Calcium (Crestor) 5 mg PO [facility] Last Admin: 07/19/18 21:29 Dose: 5 mg Tamsulosin HCl (Flomax) 0.4 mg PO DAILY [facility] Last Admin: 07/20/18 12:46 Dose: 0.4 mg - Labs Labs: 07/20/18 07:29 07/20/18 07:29 PT 12.7 SECONDS (9.7-12.2) H 07/17/18 05: INR 1.2 04/28/19 05:19 APTT 28.0 SECONDS (21-34) 07/18/18 07:36 Attending/Attestation - Attestation I have personally seen and examined this patient.: Yes I have fully participated in the care of the patient.: Yes I have reviewed all pertinent clinical information, including history, physical exam and plan: Yes Notes (Text): 07/20/18 17:30 Medical attending: Patient was seen and examined by me. Agree with the above note by the resident The patient was not in any acute distress when I came and saw. His son and also grandson was at bedside and we again discussed. Patient reported feeling much better. However we walked him in the hallway and half way around 5T he had to stop and catch his breath. He did not need assistance but he was able to walk back to his room. Cardiology would like to see the patient shortly from now at their office. The patient explains that he has been discussing with family and that he is now agreeable to the idea of a potential valve replacement Per my discussion with the grandson, the patient did have Medicare in [place] and they feel confident he will be getting Medicare again relatively soon. The patient on the CT did have some pleural effusion and we asked for pulmonology evaluation if the effusions were large enough to warrant a th oracentesis. We later were informed that the patient did not need a thoracentesis So we will see how he is doing tommorow and consider discharging him tommorow. Again we discussed at [facility] with the two family members at bedside. Humberto Morgan
[2018-07-20] MEDS: cefTRIAXone IV 1 gm in Dextros 50 ML IVPB SCH (12:46)
[2018-07-20] MEDS ORDERED: Pneumococcal 23-Valent Vaccine IM ONE (13:28)
[2018-07-20] MEDS: Azithromycin 500 MG in Sodium Chloride 0.9% 250 ML IVPB SCH (13:46)
--- NOTE | 2018-07-20 16:38 | CP.PCM.CON ---
History of Present Illness - History of Present Illness History of Present Illness: Reason for consultation: Bilateral pleural effusion 82-year-old male with history of hypertension, diabetes who presented to emergency room complaining of shortness of breath for the past 2 weeks slowly getting worse to the point that patient is unable to lie flat. Denies cough, denies fever chills, denies night sweats, denies weight loss. Because of severity of symptoms patient was initially placed on BiPAP. CAT scan of the ch est consistent with bilateral pleural effusion and congestive changes. Review of Systems - Review of Systems All systems: reviewed and no additional remarkable complaints except (Shortness of breath) Past Patient History - Past Medical History & Family History Past Medical History?: Yes - Past Social History Smoking Status: Never Smoked - CARDIAC Hx Congestive Heart Failure: Yes Hx Hypercholesterolemia: Yes Hx Hypertension: Yes Other/Comment: "leaky valve" as per family - PULMONARY Hx Chronic Obstructive Pulmonary Disease (COPD): No - NEUROLOGICAL Hx Neurological Disorder: No - HEENT Hx HEENT Problems: No - RENAL Hx Chronic Kidney Disease: No - ENDOCRINE/METABOLIC Hx Diabetes Mellitus Type 2: Yes - HEMATOLOGICAL/ONCOLOGICAL Hx Blood Disorders: No - INTEGUMENTARY Hx Dermatological Problems: No - MUSCULOSKELETAL/RHEUMATOLOGICAL Hx Arthritis: Yes Hx Falls: No - GASTROINTESTINAL Hx Gastrointestinal Disorders: No - GENITOURINARY/GYNECOLOGICAL Hx Genitourinary Disorders: No - PSYCHIATRIC Hx Psychophysiologic Disorder: No Hx Substance Use: No - SURGICAL HISTORY Hx Surgeries: Yes Other/Comment: prostatectomy - ANESTHESIA Hx Anesthesia: Yes Hx Anesthesia Reactions: No Meds Allergies/Adverse Reactions: Allergies Allergy/AdvReac Type Severity Reaction Status Date / Time No Known Allergies Allergy Verified 07/17/18 05:21 - Medications Medications: Current Medications Albuterol/Ipratropium (Duoneb 3 Mg/0.5 Mg (3 Ml) Ud) 3 ml INH RQ6 [facility] Last Admin: 07/20/18 07:34 Dose: 3 ml Aspirin (Ecotrin) 81 mg PO DAILY [facility] Last Admin: 07/20/18 09:21 Dose: 81 mg Clopidogrel Bisulfate (Plavix) 75 mg PO DAILY [facility] Last Admin: 07/20/18 09:22 Dose: 75 mg Docusate Sodium (Colace) 100 mg PO BID [facility] Last Admin: 07/20/18 09:22 Dose: 100 mg Enoxaparin Sodium (Lovenox) 40 mg SC DAILY [facility] Last Admin: 07/20/18 09:22 Dose: 40 mg Famotidine (Pepcid) 20 mg PO BID [facility] Last Admin: 07/20/18 09:21 Dose: 20 mg Furosemide (Lasix) 20 mg PO DAILY [facility] Last Admin: 07/20/18 09:22 Dose: 20 mg Insulin Human Regular (Novolin R) 0 unit SC [facility]; Protocol Last Admin: 07/20/18 12:24 Dose: Not Given Lisinopril (Zestril) 2.5 mg PO DAILY [facility] Last Admin: 07/20/18 09:22 Dose: 2.5 mg Methylprednisolone (Solu-Medrol) 40 mg IVP DAILY [facility] Last Admin: 07/20/18 09:22 Dose: 40 mg Montelukast Sodium (Singulair) 10 mg PO [facility] Last Admin: 07/19/18 21:29 Dose: 10 mg Rosuvastatin Calcium (Crestor) 5 mg PO [facility] Last Admin: 07/19/18 21:29 Dose: 5 mg Tamsulosin HCl (Flomax) 0.4 mg PO DAILY [facility] Last Admin: 07/20/18 12:46 Dose: 0.4 mg Physical Exam - Head Exam Head Exam: ATRAUMATIC, NORMOCEPHALIC - ENT Exam ENT Exam: Mucous Membranes Moist - Neck Exam Neck exam: Positive for: Normal Inspection - Respiratory Exam Respiratory Exam: Decreased Breath Sounds - Cardiovascular Exam Cardiovascular Exam: REGULAR RHYTHM, Systolic Murmur - GI/Abdominal Exam GI & Abdominal Exam: Normal Bowel Sounds, Soft - Extremities Exam Extremities exam: Positive for: normal inspection Results - Vital Signs Recent Vital Signs: Last Vital Signs Temp 98.2 F 07/19/18 23:20 Pulse 71 07/20/18 12:00 Resp 20 07/19/18 23:20 BP 110/51 L 07/20/18 09:22 Pulse Ox 96 07/19/18 23:20 - Labs Result Diagrams: 07/20/18 07:29 07/20/18 07:29 Labs: Laboratory Results - last 24 hr 07/19/18 07/20/18 07/20/18 21:14 06:05 07:29 WBC 6.7 RBC 2.83 L Hgb 9.4 L Hct 26.9 L MCV 95.1 H MCH 33.3 H MCHC 35.0 RDW 14.8 H Plt Count 193 MPV 7.5 Neut % (Auto) 60.8 Lymph % (Auto) 22.8 Reeves % (Auto) 15.9 H Eos % (Auto) 0.3 Baso % (Auto) 0.2 Neut # (Auto) 4.1 Lymph # (Auto) 1.5 Reeves # (Auto) 1.1 H Eos # (Auto) 0.0 Baso # (Auto) 0.0 Sodium Potassium Chloride Carbon Dioxide Anion Gap BUN Creatinine Est GFR ( Amer) Est GFR (Non-Af Amer) POC Glucose (mg/dL) 172 H 108 Random Glucose Calcium Phosphorus Magnesium Total Bilirubin AST ALT Alkaline Phosphatase Total Protein Albumin Globulin Albumin/Globulin Ratio 07/20/18 07/20/18 07:29 11:36 WBC RBC Hgb Hct MCV MCH MCHC RDW Plt Count MPV Neut % (Auto) Lymph % (Auto) Reeves % (Auto) Eos % (Auto) Baso % (Auto) Neut # (Auto) Lymph # (Auto) Reeves # (Auto) Eos # (Auto) Baso # (Auto) Sodium 132 Potassium 4.4 Chloride 97 L Carbon Dioxide 24 Anion Gap 15 BUN 27 H Creatinine 1.0 Est GFR ( Amer) > 60 Est GFR (Non-Af Amer) > 60 POC Glucose (mg/dL) 128 H Random Glucose 92 Calcium 8.9 Phosphorus 3.4 Magnesium 2.2 Total Bilirubin 0.5 AST 38 ALT 31 Alkaline Phosphatase 40 Total Protein 6.1 L Albumin 3.6 Globulin 2.5 Albumin/Globulin Ratio 1.4 Assessment & Plan (1) Bilateral pleural effusion Assessment and Plan: Bilateral pleural effusion secondary to moderate to severe aortic stenosis Continue Lasix Small effusion does not need thoracentesis Consider to stop steroids Surgical intervention for aortic stenosis Status: Acute
[2018-07-21] MEDS: Albuterol-Ipratrop 3 mg / 0.5 (3 ml) UD INH SCH ×3 (01:07→13:32)
[2018-07-21] MEDS: (Novolin R) Insulin Human Regular 100 units/ml vial SC SCH ×2 (07:46→12:09)
--- NOTE | 2018-07-21 07:51 | CP.PCM.DIS ---
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 Time Spent in preparation of Discharge (in minutes): 40 Diagnosis - Discharge Diagnosis (1) Acute exacerbation of CHF (congestive heart failure) Status: Acute (2) Bilateral pleural effusion Status: Acute (3) Dyspnea Status: Acute Hospital Course - Lab Results Lab Results: Micro Results 07/17/18 12:15 Blood Blood Culture - Preliminary NO GROWTH AFTER 3 DAYS 07/17/18 11:11 Blood Blood Culture - Preliminary NO GROWTH AFTER 3 DAYS Most Recent Lab Values WBC 6.7 K/uL (4.8-10.8) 07/20/18 07:29 RBC 2.83 Mil/uL (4.40-5.90) L 07/20/18 07:29 Hgb 9.4 g/dL (12.0-18.0) L 07/20/18 07:29 Hct 26.9 % (35.0-51.0) L 07/20/18 07:29 MCV 95.1 fL (80.0-94.0) H 07/20/18 07:29 MCH 33.3 pg (27.0-31.0) H 07/20/18 07:29 MCHC 35.0 g/dL (33.0-37.0) 07/20/18 07:29 RDW 14.8 % (11.5-14.5) H 07/20/18 07:29 Plt Count 193 K/uL (130-400) 07/20/18 07:29 MPV 7.5 fL (7.2-11.7) 07/20/18 07:29 Neut % (Auto) 60.8 % (50.0-75.0) 07/20/18 07:29 Lymph % (Auto) 22.8 % (20.0-40.0) 07/20/18 07:29 [place] % (Auto) 15.9 % (0.0-10.0) H 07/20/18 07:29 Eos % (Auto) 0.3 % (0.0-4.0) 07/20/18 07:29 Baso % (Auto) 0.2 % (0.0-2.0) 07/20/18 07: Neut # (Auto) 4.1 K/uL (1.8-7.0) 07/20/18 07:29 Lymph # (Auto) 1.5 K/uL (1.0-4.3) 07/20/18 07:29 [place] # (Auto) 1.1 K/uL (0.0-0.8) H 07/20/18 07:29 Eos # (Auto) 0.0 K/uL (0.0-0.7) 07/20/18 07:29 Baso # (Auto) 0.0 K/uL (0.0-0.2) 07/20/18 07:29 PT 12.7 SECONDS (9.7-12.2) H 07/17/18 05:19 INR 1.2 07/17/18 05:19 APTT 28.0 SECONDS (21-34) 07/18/18 07:36 Puncture Site Rr 07/17/18 05:30 pCO2 36 mm/Hg (35-45) 07/17/18 05:30 pO2 114 mm/Hg (80-100) H 07/17/18 05:30 HCO3 22.4 mmol/L (21-28) 07/17/18 05:30 ABG pH 7.38 (7.35-7.45) 07/17/18 05:30 ABG Total CO2 22.4 mmol/L (22-28) 07/17/18 05:30 ABG O2 Saturation 99.7 % (95-98) H 07/17/18 05:30 ABG Base Excess -3.3 mmol/L (-2.0-3.0) L 07/17/18 05:30 Leonel Test Pos 07/17/18 05:30 ABG Potassium 4.2 mmol/L (3.6-5.2) 07/17/18 05:30 A-a O2 Difference 269.0 mm/Hg 07/17/18 05:30 Respiratory Index 2.4 07/17/18 05:30 Sodium 125.0 mmol/l (132-148) L 07/17/18 05:30 Chloride 93.0 mmol/L (98-107) L 07/17/18 05:30 Glucose 175 mg/dl (75-110) H 07/17/18 05:30 Lactate 2.0 mmol/L (0.7-2.1) 07/17/18 05:30 Vent Mode Bipap 07/17/18 05:30 FiO2 60.0 % 07/17/18 05:30 Inspiratory BiPAP 14 07/17/18 05:30 Expiratory BiPAP 7 07/17/18 05:30 Sodium 132 mmol/L (132-148) 07/20/18 07:29 Potassium 4.4 mmol/L (3.6-5.2) 07/20/18 07:29 Chloride 97 mmol/L (98-107) L 07/20/18 07:29 Carbon Dioxide 24 mmol/L (22-30) 07/20/18 07:29 Anion Gap 15 (10-20) 07/20/18 07:29 BUN 27 mg/dL (9-20) H 07/20/18 07:29 Creatinine 1.0 mg/dL (0.8-1.5) 07/20/18 07:29 Est GFR ( Amer) > 60 07/20/18 07:29 Est GFR (Non-Af Amer) > 60 07/20/18 07:29 POC Glucose (mg/dL) 89 mg/dL (65-110) 07/21/18 06:18 Random Glucose 92 mg/dL (75-110) 07/20/18 07:29 Hemoglobin A1c 5.6 % (4.2-6.5) 07/17/18 09:00 Calcium 8.9 mg/dl (8.6-10.4) 07/20/18 07:29 Phosphorus 3.4 mg/dL (2.5-4.5) 07/20/18 07:29 Magnesium 2.2 mg/dL (1.6-2.3) 07/20/18 07:29 Total Bilirubin 0.5 mg/dL (0.2-1.3) 07/20/18 07:29 AST 38 U/L (17-59) 07/20/18 07:29 ALT 31 U/L (21-72) 07/20/18 07:29 Alkaline Phosphatase 40 U/L (38-126) 07/20/18 07:29 Total Creatine Kinase 73 U/L (55-170) 07/17/18 20:56 CK-MB (Mass) 3.03 ng/mL (0.0-3.38) 07/17/18 20:56 Troponin I 0.0620 ng/mL (0.00-0.120) 07/17/18 20:56 NT-Pro-B Natriuret Pep 62483 pg/mL (0-900) H 07/17/18 05:19 Total Protein 6.1 g/dL (6.3-8.3) L 07/20/18 07:29 Albumin 3.6 g/dL (3.5-5.0) 07/20/18 07:29 Globulin 2.5 gm/dL (2.2-3.9) 07/20/18 07:29 Albumin/Globulin Ratio 1.4 (1.0-2.1) 07/20/18 07:29 Triglycerides 34 mg/dL (0-149) 07/17/18 11:24 Cholesterol 134 mg/dL (0-199) 07/17/18 11:24 LDL Cholesterol Direct 42 mg/dL (0-129) 07/17/18 11:24 HDL Cholesterol 96 mg/dL (30-70) H 07/17/18 11:24 Thyroxine (T4) 8.72 ug/dL (5.5-11.0) 07/17/18 11:24 TSH 3rd Generation 1.42 mIU/L (0.46-4.68) 07/17/18 11:24 Arterial Blood Potassium 4.2 mmol/L (3.6-5.2) 07/17/18 05:30 - Hospital Course Hospital Course: HPI: Patient is an 82 year old male with past medical history of CHF, HTN, "valve problem" presented to hospital for SOB. Patient states that he has SOB on most days but for past 2 weeks, SOB has worsened. SOB present when pt tries to go to sleep and after walking to the bathroom. Last night, pt was unable to lay down to sleep due to the SOB and was brought to ED. Patient denies having any F/C, CP. He does complain of occasional palpitations and coughing[place] [id number]. Patient was placed on nitro drip and placed on BiPAP. Nitro drip discontinued and BiPAP continued. Currently, pt continues to c/o of SOB. Denies CP, abd pain, F/C, N/V/D/C. The following is a summary of hospital course. For full detail, please refer to EMR: Respiratory distress CHF exacerbation w/ reduced EF Aortic Stenosis - Severe Aortic regurgitation- Moderate Bilateral pleural effusions - ProBNP 06118. troponins x3 negative - CXR showed B/L effusions wit R>L. - Repeat CXR 07/18 moderate to severe venous congestion, b/l pleural effusion, opacity at lung base - trops X 3 negative, PVC on ekg - blood cultures negative 48H - CT chest - b/l pleural effusions with opacifcations, cardiomegaly - ECHO: EF of 40-45%, severe aortic stenosis, moderate to severe aortic regurgitation, severe pulmonary HTN, mild dilated ascending aorta, MARCELO 1.08 cm - lasix reduced to 20 PO daily due to BP in 100s - BiPAP prn - d/c azithromyicin & ceftraixone as afebrile - duonebs PRN - c/w montelukast (home medication) - F/u cardio, Dr. Echeverria recs Cardio, F/u outpatient - F/u pulm, Dr. Alejandro recbianca - no need for thoracentesis History of HTN History of ASHD - unsure of medication pt is taking at home - BP in 100s - due to vascular congestion, lasix 40 IVP daily initially, now reducing to 20 PO daily - per cardio, DAPT, aspirin 81 mg, plavix 75 mg, rosuvastatin 5 mg daily History of DM - pt reports taking a medication in [place] for diabetes; unsure of name - B.S. 120s to 180s - hgA1c 5.6, on ISS in hospital - start lisinopril 2.5mg daily for renal protection - c/w metformin upon discharge (home medication) Hyponatremia - resolved - Na resolving from high 120s to now low 130s - likely due to fluid overload - will fluid restrict - continue to monitor Prophylaxis - Protonix - SCDs, lovenox On discharge: Patient is medically stable for discharge to home, as per Dr. Morgan. Please take medications as prescribed. Patient has been instructed to follow up with his Department Store Manager (Dr. Echeverria) and Automotive General Sales Manager (Dr. Alejandro) within 1 week of discharge for further monitoring and care. Per Cardiology notes, patient has had discussions in the the past regarding potential need for valve surgery. Given his symptoms and severity, he meets bryan irizarry. Patient has stated unwillingness to undergo surgery in the past. He needs to rediscuss this option with his Department Store Manager outpatient and family and proceed accordingly. If symptoms worsen or persist, please return to ED immediately. - Date & Time of H&P Date of H&P: 07/21/18 Time of H&P: 14:14 Discharge Exam - Head Exam Head Exam: ATRAUMATIC, NORMAL INSPECTION, NORMOCEPHALIC - Eye Exam Eye Exam: EOMI, Normal appearance, PERRL - ENT Exam ENT Exam: Mucous Membranes Moist, Normal Exam - Neck Exam Neck exam: Full Rom, Normal Inspection - Respiratory Exam Respiratory Exam: Decreased Breath Sounds, Rales - Cardiovascular Exam Cardiovascular Exam: REGULAR RHYTHM, +S1, +S2 - GI/Abdominal Exam GI & Abdominal Exam: Normal Bowel Sounds, Soft, Unremarkable. absent: Distended, Firm, Guarding, Rebound, Rigid, Tenderness - Extremities Exam Extremities exam: full ROM, normal capillary refill, normal inspection, pedal pulses present - Back Exam Back exam: NORMAL INSPECTION - Neurological Exam Neurological exam: Alert, CN II-XII Intact, Normal Gait, Oriented x3 - Skin Skin Exam: Dry, Intact, Normal Color, Warm Discharge Plan - Discharge Medications Prescriptions: Aspirin [Ecotrin] 81 mg PO DAILY #30 tabec Atorvastatin [Lipitor] 40 mg PO HS #30 tab Carvedilol [Coreg] 3.125 mg PO BID #60 tab Clopidogrel Bisulfate [Plavix] 75 mg PO DAILY #30 tablet Furosemide [Lasix] 20 mg PO DAILY #30 tab Lisinopril [Zestril] 2.5 mg PO DAILY #30 tab Montelukast [Singulair] 10 mg PO HS #30 tab Tamsulosin [Flomax] 0.4 mg PO DAILY #30 cap - Follow Up Plan Condition: FAIR Disposition: HOME/ ROUTINE Instructions: Pleural Effusion (DC), Aspirin, Atorvastatin, Carvedilol, Clopidogrel, Furosemide, Lisinopril, Montelukast, Tamsulosin, Going Home on Blood Thinners , Heart Failure (DC) Additional Instructions: Patient is medically stable for discharge to home, as per Dr. Morgan. Please take medications as prescribed. Patient has been instructed to follow up with his Department Store Manager (Dr. Echeverria) and Automotive General Sales Manager (Dr. Alejandro) within 1 week of discharge for further monitoring and care. Per Cardiology notes, patient has had discussions in the the past regarding potential need for valve surgery. Given his symptoms and severity, he meets criteria. Patient has stated unwillingness to undergo surgery in the past. He needs to rediscuss this option with his Department Store Manager outpatient and family and proceed accordingly. If symptoms worsen or persist, please return to ED immediately. Referrals: Ej Alejandro MD [Staff Provider] - Josiah Echeverria MD [Staff Provider] - <Humberto Morgan - Last Filed: 07/21/18 16:18> Provider - Provider Date of Admission: 07/17/18 06:27 Attending physician: Nemesio Cardona MD Consults: 07/17/18 06:05 Physician Consult Stat Comment: DYSPNEA, FLUID OVERLOAD Consulting Provider: Abdirizak Bourgeois Consulting Physician: Abdirizak Bourgeois Reason for Consult: ICU CONSULT 07/17/18 09:07 Cardiology Consult Routine Comment: Consulting Provider: Josiah Echeverria Consulting Physician: Josiah Echeverria Reason for Consult: CHF exacerbation 07/17/18 13:28 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 Hospital Course - Lab Results Lab Results: Micro Results 07/17/18 12:15 Blood Blood Culture - Preliminary NO GROWTH AFTER 4 DAYS 07/17/18 11:11 Blood Blood Culture - Preliminary NO GROWTH AFTER 4 DAYS Most Recent Lab Values WBC 6.6 K/uL (4.8-10.8) 07/21/18 07:58 RBC 2.84 Mil/uL (4.40-5.90) L 07/21/18 07:58 Hgb 9.3 g/dL (12.0-18.0) L 07/21/18 07:58 Hct 27.1 % (35.0-51.0) L 07/21/18 07:58 MCV 95.3 fL (80.0-94.0) H 07/21/18 07:58 MCH 32.8 pg (27.0-31.0) H 07/21/18 07:58 MCHC 34.4 g/dL (33.0-37.0) 07/21/18 07:58 RDW 14.7 % (11.5-14.5) H 07/21/18 07:58 Plt Count 185 K/uL (130-400) 07/21/18 07:58 MPV 7.6 fL (7.2-11.7) 07/21/18 07:58 Neut % (Auto) 57.0 % (50.0-75.0) 07/21/18 07:58 Lymph % (Auto) 25.7 % (20.0-40.0) 07/21/18 07:58 [place] % (Auto) 15.1 % (0.0-10.0) H 07/21/18 07:58 Eos % (Auto) 1.9 % (0.0-4.0) 07/21/18 07:58 Baso % (Auto) 0.3 % (0.0-2.0) 07/21/18 07:58 Neut # (Auto) 3.8 K/uL (1.8-7.0) 07/21/18 07:58 Lymph # (Auto) 1.7 K/uL (1.0-4.3) 07/21/18 07:58 [place] # (Auto) 1.0 K/uL (0.0-0.8) H 07/21/18 07:58 Eos # (Auto) 0.1 K/uL (0.0-0.7) 07/21/18 07:58 Baso # (Auto) 0.0 K/uL (0.0-0.2) 07/21/18 07:58 PT 12.7 SECONDS (9.7-12.2) H 07/17/18 05:19 INR 1.2 07/17/18 05:19 APTT 28.0 SECONDS (21-34) 07/18/18 07:36 Puncture Site Rr 07/17/18 05:30 pCO2 36 mm/Hg (35-45) 07/17/18 05:30 pO2 114 mm/Hg (80-100) H 07/17/18 05:30 HCO3 22.4 mmol/L (21-28) 07/17/18 05:30 ABG pH 7.38 (7.35-7.45) 07/17/18 05:30 ABG Total CO2 22.4 mmol/L (22-28) 07/17/18 05:30 ABG O2 Saturation 99.7 % (95-98) H 07/17/18 05:30 ABG Base Excess -3.3 mmol/L (-2.0-3.0) L 07/17/18 05:30 Leonel Test Pos 07/17/18 05:30 ABG Potassium 4.2 mmol/L (3.6-5.2) 07/17/18 05:30 A-a O2 Difference 269.0 mm/Hg 07/17/18 05:30 Respiratory Index 2.4 07/17/18 05:30 Sodium 125.0 mmol/l (132-148) L 07/17/18 05:30 Chloride 93.0 mmol/L (98-107) L 07/17/18 05:30 Glucose 175 mg/dl (75-110) H 07/17/18 05:30 Lactate 2.0 mmol/L (0.7-2.1) 07/17/18 05:30 Vent Mode Bipap 07/17/18 05:30 FiO2 60.0 % 07/17/18 05:30 Inspiratory BiPAP 14 07/17/18 05:30 Expiratory BiPAP 7 07/17/18 05:30 Sodium 135 mmol/L (132-148) 07/21/18 07:58 Potassium 4.2 mmol/L (3.6-5.2) 07/21/18 07:58 Chloride 100 mmol/L (98-107) 07/21/18 07:58 Carbon Dioxide 26 mmol/L (22-30) 07/21/18 07:58 Anion Gap 13 (10-20) 07/21/18 07:58 BUN 23 mg/dL (9-20) H 07/21/18 07:58 Creatinine 0.9 mg/dL (0.8-1.5) 07/21/18 07:58 Est GFR ( Amer) > 60 07/21/18 07:58 Est GFR (Non-Af Amer) > 60 07/21/18 07:58 POC Glucose (mg/dL) 95 mg/dL (65-110) 07/21/18 11:49 Random Glucose 82 mg/dL (75-110) 07/21/18 07:58 Hemoglobin A1c 5.6 % (4.2-6.5) 07/17/18 09:00 Calcium 8.8 mg/dl (8.6-10.4) 07/21/18 07:58 Phosphorus 3.5 mg/dL (2.5-4.5) 07/21/18 07:58 Magnesium 2.2 mg/dL (1.6-2.3) 07/21/18 07:58 Total Bilirubin 0.4 mg/dL (0.2-1.3) 07/21/18 07:58 AST 32 U/L (17-59) 07/21/18 07:58 ALT 31 U/L (21-72) 07/21/18 07:58 Alkaline Phosphatase 39 U/L (38-126) 07/21/18 07:58 Total Creatine Kinase 73 U/L (55-170) 07/17/18 20:56 CK-MB (Mass) 3.03 ng/mL (0.0-3.38) 07/17/18 20:56 Troponin I 0.0620 ng/mL (0.00-0.120) 07/17/18 20:56 NT-Pro-B Natriuret Pep 12757 pg/mL (0-900) H 07/17/18 05:19 Total Protein 5.8 g/dL (6.3-8.3) L 07/21/18 07:58 Albumin 3.4 g/dL (3.5-5.0) L 07/21/18 07:58 Globulin 2.5 gm/dL (2.2-3.9) 07/21/18 07:58 Albumin/Globulin Ratio 1.4 (1.0-2.1) 07/21/18 07:58 Triglycerides 34 mg/dL (0-149) 07/17/18 11:24 Cholesterol 134 mg/dL (0-199) 07/17/18 11:24 LDL Cholesterol Direct 42 mg/dL (0-129) 07/17/18 11:24 HDL Cholesterol 96 mg/dL (30-70) H 07/17/18 11:24 Thyroxine (T4) 8.72 ug/dL (5.5-11.0) 07/17/18 11:24 TSH 3rd Generation 1.42 mIU/L (0.46-4.68) 07/17/18 11:24 Arterial Blood Potassium 4.2 mmol/L (3.6-5.2) 07/17/18 05:30 Attending/Attestation - Attestation I have personally seen and examined this patient.: Yes I have fully participated in the care of the patient.: Yes I have reviewed all pertinent clinical information, including history, physical exam and plan: Yes Notes (Text): 07/21/18 16:09 Medical attending: Patient was seen and examined by me with the certified medical coding specialist. His family members were present again at bedside. We again had him walk with us and he was able to walk around the entirety of 5T and back to his room. He did not need assistance, his gait looked normal to the family members when we asked them Also appreciate pulmonology seeing the patient and at this time the pleural effusions are too small for thoracentesis so he should continue with the diuretic. The family explain that they are in the process of getting the patient Medicad as he was in [place] and when he came to [place] two years ago he no longer had it. We emphasized to the family that it is very important since in the future the patient will need to have follow ups for cardiology for testing and to see if he can have intervention for the aortic stenosis. The patient will be going with a low dose GIULIANA-I, low dose coreg, and lasix once a day. He should also resume the medication for his COPD as well thank you Humberto Morgan
[2018-07-21 08:10] LABS: BASO % 0.3 % (0.0-2.0); EOS # 0.1 K/uL (0.0-0.7); EOS % 1.9 % (0.0-4.0); HEMOGLOBIN 9.3 g/dL (12.0-18.0); LYMPH # 1.7 K/uL (1.0-4.3); LYMPH % 25.7 % (20.0-40.0); MEAN CELL VOLUME 95.3 fL (80.0-94.0); MEAN CORPUSCULAR HEMOGLOBIN 32.8 pg (27.0-31.0); MEAN CORPUSCULAR HGB CONC 34.4 g/dL (33.0-37.0); MEAN PLATELET VOLUME 7.6 fL (7.2-11.7); MONO % 15.1 % (0.0-10.0); NEUT # 3.8 K/uL (1.8-7.0); NRBC % 0.1 % (0.0-2.0); RBC 2.84 Mil/uL (4.40-5.90); RED CELL DISTRIBUTION WIDTH 14.7 % (11.5-14.5); WHITE BLOOD COUNT 6.6 K/uL (4.8-10.8)
[2018-07-21 08:25] VITALS: PULSE 72; TEMP 98
[2018-07-21 08:54] LABS: ALB/GLOB RATIO 1.4 (1.0-2.1); ALBUMIN 3.4 g/dL (3.5-5.0); ALT/SGPT 31 U/L (21-72); AST/SGOT 32 U/L (17-59); BLOOD UREA NITROGEN 23 mg/dL (9-20); CALCIUM 8.8 mg/dl (8.6-10.4); GFR NON-AFRICAN AMERICAN > 60
[2018-07-21 10:15] VITALS: O2SAT 94
[2018-07-21] MEDS: MethylPREDNISolone 40 mg Vial IVP SCH (10:29)
[2018-07-21] MEDS: Enoxaparin 40 mg Syringe SC SCH (10:29)
[2018-07-21 10:31] VITALS: BP 106/50
== END 2018-07-21 15:48 | disposition home or self-care (01) | DRG 194 ==
LOC: C.ER 05:03 → C.9E 06:27 → C.5S 07:47
PROVIDERS: ADMIT Family Medicine; ATTEND Family Medicine
DX: I11.0 Hypertensive heart disease with heart failure (principal); I50.41 Acute combined systolic (congestive) and diastolic (congestive) heart failure; I35.2 Nonrheumatic aortic (valve) stenosis with insufficiency; E87.1 Hypo-osmolality and hyponatremia; I27.20 Pulmonary hypertension, unspecified; J44.9 Chronic obstructive pulmonary disease, unspecified; E11.9 Type 2 diabetes mellitus without complications; I49.3 Ventricular premature depolarization; I25.10 Atherosclerotic heart disease of native coronary artery without angina pectoris; I77.819 Aortic ectasia, unspecified site; D64.9 Anemia, unspecified; E78.5 Hyperlipidemia, unspecified; E78.00 Pure hypercholesterolemia, unspecified; Z72.0 Tobacco use; Z79.4 Long term (current) use of insulin; Z79.899 Other long term (current) drug therapy